=== PATIENT | female | born 1940 | race Caucasian/White ===

== ENCOUNTER 2019-10-04 18:12 | Inpatient (IN) | payer MEDICARE, OTHER ==
[~2019-10-04] VITALS: Ht 170.2 cm; Wt 92.8 kg
[~2019-10-04 18:12] MED LIST: ACET325T21 PO; ALPRAZOLAM; AMLO5TAB10 PO; ASPI-482 PO; DESV50TA PO; DIPH25CA23 PO; DOCU-109 PO; FERR325T14 PO; GUAI100L12 PO; GUAI200T3 PO; HYDR-2868 PO; HYDR-923 PO; HYDR25TA PO; LOPE2TAB56 PO; MECL-75 PO; MELA3TAB4 PO; METO-239 PO; MYLANTA; OXYC1TAB15 PO; PANT40TA5 PO; RISP1TAB43 PO; SIME125T17 PO; [UNRECOGNIZED DRUG - CODE] MC; [UNRECOGNIZED DRUG - OTHER]; [UNRECOGNIZED DRUG - OTHER]; [UNRECOGNIZED DRUG - OTHER]; risperidone IM
--- NOTE | 2019-10-04 18:31 | PHYS DOC ---
Past History Past Medical History: Anemia, Anxiety, Arthritis, Arrhythmia, Bipolar, CAD, Dementia, Depression, Diverticulitis, Gallstones, GERD, Hypertension Past Medical History Parkinson disease, Tremor, Tardive Dyskinesia Past Surgical History: Angioplasty, Appendectomy, Hysterectomy Smoking: Non-smoker Alcohol Use: None Drug Use: None Adult General Chief Complaint Chief Complaint: ... "What ever.. " [facility] HPI Patient is a 79 year old female who presents with above hx and complaints that she only wants to be called "Pat". Pt. sent to ED for pre-medical clearance to [facility]. Pt. a resident of [facility] , since09/14/2019. Pt. has been calling 911, repeatedly. Pt. more confused. Decreased interest in activities at [place]. Difficult to re-direct. Exhibiting poor impulse control. Increase in Somatic complaints, panic episodes, and over all increase in anxiety. Increase delusions. Acute onset of change approximately l week ago. . Patient has history of parties to dyskinesia, Parkinson's, tremors, bipolar schizoaffective disorder, frequent PVCs, hypertension, GERD, chronic dyspnea, COPD/emphysema, and history of pneumonia in 09/14/19. Primary care physician is Dr. Yvette Barriga. Review of Systems Review of Systems Patient has no complaints Constitutional: Denies fever or chills [] Eyes: Denies change in visual acuity, redness, or eye pain [] HENT: Denies nasal congestion or sore throat [] Respiratory: Denies cough or shortness of breath [] Cardiovascular: No additional information not addressed in [facility] [] GI: Denies abdominal pain, nausea, vomiting, bloody stools or diarrhea [] : Denies dysuria or hematuria [] Musculoskeletal: Denies back pain or joint pain [] Integument: Denies rash or skin lesions [] Neurologic: Denies headache, focal weakness or sensory changes [] Endocrine: Denies polyuria or polydipsia [] All other systems were reviewed and found to be within normal limits, except as documented in this note. Family History Family History Not currently available Current Medications Current Medications See nursing for home meds Allergies Allergies Allergies Coded Allergies Type Severity Reaction Last Updated Verified No Known Drug Allergies 08/01/13 No Physical Exam Physical Exam Constitutional: no acute distress, non-toxic appearance. [] HENT: Normocephalic, atraumatic, bilateral external ears normal, oropharynx moist, no oral exudates, nose normal. [] Eyes: PERRLA, EOMI, conjunctiva normal, no discharge. [] Neck: Normal range of motion, no tenderness, supple, no stridor. [] Cardiovascular:Heart rate regular rhythm, no murmur [, PMI to the left] Lungs & Thorax: Bilateral breath sounds equal apexes with basilar crackles on auscultation [] Abdomen: Bowel sounds normal, soft, no tenderness, no masses, no pulsatile masses. [Obese. Old surgery scars Skin: Warm, dry, no erythema, no rash. Poor turgor Back: No tenderness, no CVA tenderness. [] Extremities: No tenderness, no cyanosis, no clubbing, ROM intact, bilateral ankle edema. [] Neurologic: Alert, at times appears confused, moves extremities on request, does have distal sensory, n Psychologic: Affect anxious, at times very flat affect, judgement obviously impaired, mood depressed EKG EKG My interpretation EKG shows a sinus rhythm at 77 bpm. Occasional PVCs. Multifocal[] Radiology/Procedures Radiology/[place] [address] IMAGING REPORT Signed PATIENT: BRIDGET RODRIGUEZ ACCOUNT: [id number] : 1940 LOCATION: ER AGE: 79 SEX: F EXAM STATUS: REG ER ORD. PHYSICIAN: JOEY MEJIA MD REASON: Dyspnea PROCEDURE: PORTABLE CHEST 1V PORTABLE CHEST 1V History: Dyspnea Comparison: Chest radiograph July 28, [address] abdomen pelvis exam July 28, 2013 Findings: Single view of the chest is submitted. There is again large left hiatal hernia. There is atherosclerotic calcification near aortic arch. There is likely degree of atelectasis adjacent to the hernia sac at the mid to inferior left hemithorax, also mild linear right base atelectasis. No pneumothorax is identified. Heart size is similar. Impression: 1. There is again large left hiatal hernia. There is likely degree of atelectasis adjacent to hernia sac on the left, also linear likely atelectasis of the right lung base. Electronically signed by: Andrew Gutierrez MD (10/04/2019 7:32 PM) [id number] DICTATED AND SIGNED BY: ANDREW GUTIERREZ MD DATE: 10/04/191931 CC: JOEY MEJIA MD; YVETTE BARRIGA MD ~ [][place] [address] IMAGING REPORT Signed PATIENT: BRIDGET RODRIGUEZ ACCOUNT: [id number] : 1940 LOCATION: ER AGE: 79 SEX: F EXAM STATUS: REG ER ORD. PHYSICIAN: JOEY MEJIA MD REASON: mental status change-increased confusion PROCEDURE: CT HEAD WO CONTRAST CT HEAD WO CONTRAST History: Mental status change, increasing confusion Comparison: April 08, 2013 Technique: Noncontrast CT imaging was performed of the head. Exposure: One or more of the following individualized dose reduction techniques were utilized for this examination: 1. Automated exposure control 2. Adjustment of the mA and/or kV according to patient size 3. Use of iterative reconstruction technique. Findings: Patient's head is somewhat tilted in the gantry during exam. No acute extra-axial or parenchymal hemorrhage is identified. There is no significant intra-axial mass effect or midline shift. There is again small likely arachnoid cyst of the posterior right parasagittal posterior fossa up to 1.9 cm AP by 1.6 cm transverse. The garcia-white differentiation of the major vascular territories is preserved. Ventricular size is proportionate to the sulcal spaces. There is mild generalized supratentorial involutional change. The mastoid air cells and the visualized paranasal sinuses are overall aerated, possible mild right maxillary sinus mucosal thickening not fully included. No acute calvarial abnormality is identified. Impression: 1. No acute intracranial abnormality is identified. There is mild generalized supratentorial involutional change. Electronically signed by: Andrew Gutierrez MD (10/04/2019 8:11 PM) [id number] DICTATED AND SIGNED BY: ANDREW GUTIERREZ MD DATE: 10/04/192010 CC: JOEY MEJIA MD; YVETTE BARRIGA MD ~ Course & Med Decision Making Course & Med Decision Making Pertinent Labs and Imaging studies reviewed. (See chart for details) Patient admitted to [facility] Dr. Corona, Consults to Dr. Zapata for health issues. Impression; 1. Mental status change 2. Hx. Insomnia 3. Behavior issues increased by difficult to redirect 4. Anxiety disorder with panic attacks 5. History bipolar with schizoaffective and psychotic features 6. History of hypertension 7. History of dysrhythmia PVC 8. History of Parkinson with tremors 9. History of tardive to dyskinesia 10. Sub-therapeutic valproic acid level- 21 11. Malnutrition albumin 3.1 [] Dragon Disclaimer Dragon Disclaimer This electronic medical record was generated, in whole or in part, using a voice recognition dictation system. Departure Departure: Disposition: 01 HOME/RESIDENCE PRIOR TO ADM Condition: STABLE Referrals: YVETTE BARRIGA MD (PCP) Raquel Disclaimer This chart was dictated in whole or in part using Voice Recognition software in a busy, high-work load, and often noisy Emergency Department environment. It may contain unintended and wholly unrecognized errors or omissions. JOEY MEJIA MD Oct 04, 2019 18:31
[2019-10-04 19:13] LABS: BASO % 0 % (0-3); EOS # 0.2 x10^3/uL (0.0-0.7); EOS % 3 % (0-3); HEMATOCRIT 43.8 % (36.0-47.0); HEMOGLOBIN 14.6 g/dL (12.0-15.5); LYMPH # 0.9 x10^3/uL (1.0-4.8); LYMPH % 15 % (24-48); MEAN CORPUSCULAR HEMOGLOBIN 32 pg (25-35); MEAN CORPUSCULAR HGB CONC 33 g/dL (31-37); MEAN CORPUSCULAR VOLUME 94 fL (79-100); MONO # 0.6 x10^3/uL (0.0-1.1); MONO % 11 % (0-9); NEUT % 70 % (31-73); PLATELET COUNT 230 x10^3/uL (140-400); RED BLOOD COUNT 4.64 x10^6/uL (3.50-5.40); RED CELL DISTRIBUTION WIDTH 15.2 % (11.5-14.5); WHITE BLOOD COUNT 5.7 x10^3/uL (4.0-11.0)
[2019-10-04 19:21] LABS: ANION GAP 7 (6-14); BLOOD UREA NITROGEN 7 mg/dL (7-20); CALCIUM 8.6 mg/dL (8.5-10.1); CARBON DIOXIDE 30 mmol/L (21-32); CHLORIDE 105 mmol/L (98-107); CREATININE 0.8 mg/dL (0.6-1.0); GFR 69.6; GLUCOSE 116 mg/dL (70-99); POTASSIUM 4.5 mmol/L (3.5-5.1); SODIUM 142 mmol/L (136-145)
[2019-10-04 19:34] LABS: ALBUMIN 3.1 g/dL (3.4-5.0); ALK PHOS 88 U/L (46-116); ALT (SGPT) 34 U/L (14-59); AST (SGOT) 28 U/L (15-37); DIRECT BILIRUBIN 0.1 mg/dL (0.0-0.2); LIPASE 203 U/L (73-393); MAGNESIUM 2.2 mg/dL (1.8-2.4); TOTAL BILIRUBIN 0.3 mg/dL (0.2-1.0); TOTAL PROTEIN 5.9 g/dL (6.4-8.2)
--- NOTE | 2019-10-04 19:35 | RAD ---
PORTABLE CHEST 1V History: Dyspnea Comparison: Chest radiograph July 28, [address] abdomen pelvis exam July 28, 2013 Findings: Single view of the chest is submitted. There is again large left hiatal hernia. There is atherosclerotic calcification near aortic arch. There is likely degree of atelectasis adjacent to the hernia sac at the mid to inferior left hemithorax, also mild linear right base atelectasis. No pneumothorax is identified. Heart size is similar. Impression: 1. There is again large left hiatal hernia. There is likely degree of atelectasis adjacent to hernia sac on the left, also linear likely atelectasis of the right lung base. Electronically signed by: Ottoniel Gonzalez MD (10/04/2019 7:32 PM) [id number]
[2019-10-04 19:40] LABS: VAL ACID 21 mcg/mL (50-100)
[2019-10-04 19:48] LABS: INFLUENZA A PATIENT NEGATIVE (NEGATIVE); INFLUENZA B PATIENT NEGATIVE (NEGATIVE)
--- NOTE | 2019-10-04 20:14 | RAD ---
CT HEAD WO CONTRAST History: Mental status change, increasing confusion Comparison: April 08, 2013 Technique: Noncontrast CT imaging was performed of the head. Exposure: One or more of the following individualized dose reduction techniques were utilized for this examination: 1. Automated exposure control 2. Adjustment of the mA and/or kV according to patient size 3. Use of iterative reconstruction technique. Findings: Patient's head is somewhat tilted in the gantry during exam. No acute extra-axial or parenchymal hemorrhage is identified. There is no significant intra-axial mass effect or midline shift. There is again small likely arachnoid cyst of the posterior right parasagittal posterior fossa up to 1.9 cm AP by 1.6 cm transverse. The garcia-white differentiation of the major vascular territories is preserved. Ventricular size is proportionate to the sulcal spaces. There is mild generalized supratentorial involutional change. The mastoid air cells and the visualized paranasal sinuses are overall aerated, possible mild right maxillary sinus mucosal thickening not fully included. No acute calvarial abnormality is identified. Impression: 1. No acute intracranial abnormality is identified. There is mild generalized supratentorial involutional change. Electronically signed by: Ottoniel Gonzalez MD (10/04/2019 8:11 PM) [id number]
[2019-10-04] MEDS ORDERED: AMLO10TA8 PO (20:16)
[2019-10-04 20:19] LABS: SEDIMENTATION RATE 22 (0-25)
[2019-10-04] MEDS ORDERED: IPRA3AMP29 NEB ×2 (20:30)
[2019-10-04] MEDS ORDERED: LACT1CAP19 PO (20:30)
[2019-10-04] MEDS ORDERED: BUSP10TA PO (20:30)
[2019-10-04] MEDS ORDERED: BACL10TA PO (20:30)
[2019-10-04] MEDS ORDERED: PROP15DR40 EACHEYE (20:30)
[2019-10-04] MEDS ORDERED: CARB1TAB22 PO (20:30)
[2019-10-04] MEDS ORDERED: POTA20TA4 PO (20:30)
[2019-10-04] MEDS ORDERED: LORA0.5T96 PO (20:30)
[2019-10-04] MEDS ORDERED: FURO40TA4 PO (20:30)
[2019-10-04] MEDS ORDERED: ARIP2TAB35 PO (20:30)
[2019-10-04] MEDS ORDERED: MAGN30OR PO (20:30)
[2019-10-04] MEDS ORDERED: FLUT9.9S NS (20:30)
[2019-10-04] MEDS ORDERED: ALBU2.5V8 INH (20:30)
[2019-10-04] MEDS ORDERED: DIVA-51 PO (20:30)
[2019-10-04] MEDS ORDERED: TRIA15CR50 TP (20:30)
[2019-10-04] MEDS ORDERED: ACET325T21 PO (20:30)
[2019-10-04 20:50] LABS: BACTERIA,URINE 0 /HPF (0-FEW); BILIRUBIN,URINE NEG (NEG); CLARITY,URINE CLEAR; COLOR,URINE YELLOW; GLUCOSE,URINE NEG (NEG); NITRITE,URINE NEG (NEG); RBC,URINE 0 /HPF (0-2); SQUAMOUS EPITHELIAL CELL,UR OCC /LPF; UROBILINOGEN,URINE 0.2 mg/dL (0.2 mg/dL); WBC,URINE 0 /HPF (0-4)
[2019-10-04 21:06] LABS: AMPHETAMINE/METHAMPHETAMINE NEG (NEG); BARBITURATES NEG (NEG); BENZODIAZEPINES NEG (NEG); CANNABINOIDS NEG (NEG); COCAINE NEG (NEG); METHADONE NEG (NEG); OPIATES NEG (NEG); PHENCYCLIDINE NEG (NEG)
[2019-10-04] MEDS ORDERED: MAGNESIUM HYDROXIDE 2,400 MG/30 ML ORAL.SUSP. PO PRN (23:30)
[2019-10-04] MEDS ORDERED: METHYL SALICYLATE/MENTHOL TOPICAL OINTMENT 57GM TUBE. TP PRN (23:30)
[2019-10-04] MEDS ORDERED: DULO30CA2 PO (23:57)
[2019-10-04] MEDS ORDERED: DULO20CA50 PO (23:57)
[2019-10-05] MEDS ORDERED: ALBUTEROL SULFATE 2.5 MG/3 ML NEBU. INH PRN
[2019-10-05] MEDS ORDERED: ACETAMINOPHEN 325 MG TABLET PO PRN
[2019-10-05] MEDS ORDERED: TRIAMCINOLONE ACETONIDE 0.5% TOPICAL CREAM 15GM TUBE. TP PRN
[2019-10-05] MEDS ORDERED: IPRATRPIUM/ALBUTEROL 0.5/2.5MG 3 ML NEBU. NEB PRN
[2019-10-05] MEDS ORDERED: MAG HYDROX/AL HYDROX/SIMETH 30 ML ORAL.SUSP PO PRN (00:15)
[2019-10-05 03:37] VITALS: BP 138/82
[2019-10-05] MEDS ORDERED: IPRATRPIUM/ALBUTEROL 0.5/2.5MG 3 ML NEBU. ONE (04:58)
[2019-10-05] MEDS: IPRATRPIUM/ALBUTEROL 0.5/2.5MG 3 ML NEBU. NEB SCH ×4 (05:35→20:00)
[2019-10-05 06:02] VITALS: BP 141/77
[2019-10-05 07:01] LABS: BASO % 0 % (0-3); EOS # 0.2 x10^3/uL (0.0-0.7); EOS % 3 % (0-3); HEMOGLOBIN 13.9 g/dL (12.0-15.5); LYMPH # 1.2 x10^3/uL (1.0-4.8); LYMPH % 21 % (24-48); MEAN CORPUSCULAR HEMOGLOBIN 31 pg (25-35); MEAN CORPUSCULAR HGB CONC 33 g/dL (31-37); MEAN CORPUSCULAR VOLUME 95 fL (79-100); MONO # 0.6 x10^3/uL (0.0-1.1); MONO % 11 % (0-9); NEUT # 3.7 x10^3uL (1.8-7.7); NEUT % 65 % (31-73); PLATELET COUNT 221 x10^3/uL (140-400); RED BLOOD COUNT 4.44 x10^6/uL (3.50-5.40); RED CELL DISTRIBUTION WIDTH 15.3 % (11.5-14.5); WHITE BLOOD COUNT 5.7 x10^3/uL (4.0-11.0)
[2019-10-05 07:07] LABS: CALCIUM 8.6 mg/dL (8.5-10.1); CREATININE 0.7 mg/dL (0.6-1.0); GFR 81.1; POTASSIUM 3.9 mmol/L (3.5-5.1)
[2019-10-05] MEDS ORDERED: IPRATRPIUM/ALBUTEROL 0.5/2.5MG 3 ML NEBU. NEB SCH (08:00)
[2019-10-05] MEDS: METOPROLOL SUCC 24HR ER 25 MG TAB.ER.24H. PO SCH (08:51)
[2019-10-05] MEDS: BACLOFEN 10 MG TABLET PO SCH ×2 (08:51→20:11)
[2019-10-05] MEDS: busPIRone 10 MG TABLET. PO SCH ×2 (08:52→20:10)
[2019-10-05] MEDS: FUROSEMIDE 40 MG TABLET PO SCH (08:52)
[2019-10-05] MEDS: hydrALAZINE 25 MG TABLET PO SCH ×2 (08:52→20:11)
[2019-10-05] MEDS: amLODIPine BESYLATE 10 MG TABLET PO SCH (08:52)
[2019-10-05] MEDS: DIVALPROEX SODIUM 250 MG TABLET.DR. PO SCH ×2 (08:52→20:10)
[2019-10-05] MEDS: CARBIDOPA/LEVODOPA 25/100MG TABLET PO SCH ×3 (08:52→20:10)
[2019-10-05] MEDS: POLYVINYL ALCOHOL 1.4% OPHTH SOLUTION 15ML BOTTLE. OU SCH ×2 (09:00→20:11)
[2019-10-05] MEDS: POTASSIUM CHLORIDE 20 MEQ TABLET.ER. PO SCH ×2 (09:00→20:10)
[2019-10-05] MEDS: LACTOBACILLUS RHAMNOSUS GG 1 CAPSULE. PO SCH ×2 (09:00→20:10)
[2019-10-05] MEDS: FLUTICASONE 50MCG/NASAL SPRAY 16GM BOTTLE. NS SCH (09:00)
[2019-10-05 15:54] VITALS: BP 128/78
[2019-10-05 18:06] LABS: THYROXINE 9.3 ug/dL (4.5-12.0)
[2019-10-05] MEDS: LORazepam 0.5 MG TABLET PO SCH (20:11)
--- NOTE | 2019-10-05 21:49 | PDOC ---
Exam Note: Biju Note: Please also refer to the separate dictated note~for this date of service dictated separately. Discussed the patient with Nursing staff reviewed the chart.~Reviewed interim history and current functioning. Reviewed vital signs,~Labs/ Radiology~and current medications noted below. Continue current treatment with the changes noted in the dictated addendum note Assessment: Vital Signs/I&O: Vital Signs Date Time Temp Pulse Resp B/P (MAP) Pulse Ox O2 Delivery O2 Flow Rate FiO2 10/05/19 20:11 84 128/78 10/05/19 15:54 98.0 18 92 10/05/19 06:18 Nasal Cannula 2.0 Labs: Laboratory Tests Test 10/05/19 06:47 White Blood Count 5.7 x10^3/uL (4.0-11.0) Red Blood Count 4.44 x10^6/uL (3.50-5.40) Hemoglobin 13.9 g/dL (12.0-15.5) Hematocrit 42.0 % (36.0-47.0) Mean Corpuscular Volume 95 fL (79-100) Mean Corpuscular Hemoglobin 31 pg (25-35) Mean Corpuscular Hemoglobin Concent 33 g/dL (31-37) Red Cell Distribution Width 15.3 % (11.5-14.5) H Platelet Count 221 x10^3/uL (140-400) Neutrophils (%) (Auto) 65 % (31-73) Lymphocytes (%) (Auto) 21 % (24-48) L Monocytes (%) (Auto) 11 % (0-9) H Eosinophils (%) (Auto) 3 % (0-3) Basophils (%) (Auto) 0 % (0-3) Neutrophils # (Auto) 3.7 x10^3uL (1.8-7.7) Lymphocytes # (Auto) 1.2 x10^3/uL (1.0-4.8) Monocytes # (Auto) 0.6 x10^3/uL (0.0-1.1) Eosinophils # (Auto) 0.2 x10^3/uL (0.0-0.7) Basophils # (Auto) 0.0 x10^3/uL (0.0-0.2) Sodium Level 141 mmol/L (136-145) Potassium Level 3.9 mmol/L (3.5-5.1) Chloride Level 106 mmol/L (98-107) Carbon Dioxide Level 29 mmol/L (21-32) Anion Gap 6 (6-14) Blood Urea Nitrogen 7 mg/dL (7-20) Creatinine 0.7 mg/dL (0.6-1.0) Estimated GFR (Cockcroft-Gault) 81.1 Glucose Level 96 mg/dL (70-99) Calcium Level 8.6 mg/dL (8.5-10.1) Thyroxine (T4) 9.3 ug/dL (4.5-12.0) Total Triiodothyronine (TT3) 103 ng/dL (71-180) Current Medications: Meds: Current Medications Medications (Trade) Dose Ordered Sig/Mode Route PRN Reason Start Time Stop Time Status Last Admin Dose Admin Amlodipine Besylate (Norvasc) 10 mg DAILY PO 10/05/19 09:00 10/05/19 08:52 Baclofen (Lioresal) 10 mg BID PO 10/05/19 09:00 10/05/19 20:11 Carbidopa/Levodopa (Sinemet 25/100) 1 tab TID PO 10/05/19 09:00 10/05/19 20:10 Furosemide (Lasix) 40 mg DAILY PO 10/05/19 09:00 10/05/19 08:52 Hydralazine HCl (Apresoline) 25 mg BID PO 10/05/19 09:00 10/05/19 20:11 Albuterol/ Ipratropium (Duoneb) 3 ml RTQID NEB 10/05/19 08:00 10/05/19 16:49 Lactobacillus Rhamnosus (Culturelle) 1 cap BID PO 10/05/19 09:00 10/05/19 20:10 Metoprolol Succinate (Toprol Xl) 25 mg DAILY PO 10/05/19 09:00 10/05/19 08:51 Potassium Chloride (Klor-Con) 20 meq BID PO 10/05/19 09:00 10/05/19 20:10 Artificial Tears (Artificial Tears) 1 drop BID OU 10/05/19 09:00 10/05/19 20:11 Buspirone HCl (Buspar) 10 mg BID PO 10/05/19 09:00 10/05/19 20:10 Divalproex Sodium (Depakote) 250 mg BID PO 10/05/19 09:00 10/05/19 20:10 Lorazepam (Ativan) 0.5 mg HS PO 10/05/19 21:00 10/05/19 20:11 I have reviewed the current psychotropics carefully including drug interactions. Risk benefit ratio favors no change other than as noted in my dictated progress note. Diagnosis: Problems: (1) Dementia with behavioral disturbance ASHLY FORMAN MD Oct 05, 2019 21:48
[2019-10-06 00:07] LABS: HEMOGLOBIN A1C 5.2 % (4.8-5.6)
--- NOTE | 2019-10-06 01:37 | CONS ---
DATE OF CONSULTATION: 10/05/2019 REASON FOR CONSULTATION: Medical management. HISTORY OF PRESENT ILLNESS: The patient is a 79-year-old female patient, resident at [facility], who was admitted on account of calling 911. She has decreased interest in activities, making repetitive statements, anxious with change in mental status, multiple somatic complaints, panic attack, calling police to tell them that she does not feel well, all this in a background of schizoaffective disorder, bipolar type, with psychotic features, anxiety disorder, impulse control disorder. Medically, she has multiple medical problems including tardive dyskinesia, possible drug-induced Parkinson's disease, tremors. She does have hypertension, gastroesophageal reflux disease, has coronary artery disease and she underwent coronary angiography and stent deployment. ALLERGIES: She is allergic to DILTIAZEM and RISPERIDONE. MEDICATIONS: She is currently on following medications: She is on ipratropium bromide, albuterol sulfate 3 mL by nebulizer every 6 hours, ipratropium bromide. She is on albuterol sulfate for ProAir 1 puff every 4 hours, baclofen 10 mg twice a day, hydralazine 25 mg every 12 hours, metoprolol succinate 25 mg once a day, amlodipine besylate 10 mg daily, acetaminophen 650 mg every 6 hours, divalproex sodium 250 mg twice a day, duloxetine 20 mg twice a day. She is on Cymbalta 30 mg twice a day, aripiprazole 2.5 mg daily, lorazepam 0.5 mg at bedtime, buspirone 10 mg twice a day, carbidopa/levodopa 25/100 three times a day, potassium chloride 20 mEq twice a day, furosemide 40 mg daily, Flonase 1 spray to each nostril daily. She is on Systane 1 drop to both eyes twice a day, magnesium hydroxide for 15 mL every 8 hours as needed, lactobacillus rhamnosus for Culturelle 1 capsule twice a day. She is on triamcinolone acetonide cream applied topically twice a day. FAMILY HISTORY: Noncontributory. SOCIAL HISTORY: She has been a resident at [facility] for a long time. She does not smoke, drink alcohol or use any recreational drugs. REVIEW OF SYSTEMS: As per history of present illness. PHYSICAL EXAMINATION: GENERAL: When I saw her today, she was sitting comfortably in her chair, in no apparent respiratory distress. There was no pallor, jaundice, cyanosis or thyromegaly. No jugular venous distension. No lower limb edema. VITAL SIGNS: Her heart rate was 84, blood pressure was 128/78, temperature was 98, respiratory rate was 18, and oxygen saturation was 92% on room air. HEAD, EYES, EARS, NOSE AND THROAT: Showed normocephalic, atraumatic. NECK: Supple. HEART: Showed normal first and second heart sounds. No gallop or murmur. CHEST: Clear to auscultation. No crepitation or rhonchi. ABDOMEN: Distended, soft, nontender. NEUROLOGIC: She is awake, alert, responding appropriately. All cranial nerves intact. EXTREMITIES: She moves extremities without difficulty. She is able to ambulate without assistance or assistive devices. LABORATORY DATA: Showed that her white cell count was 5700, hemoglobin 14, hematocrit 42, MCV 95, and platelet count 221,000. Her serum sodium was 141, potassium 3.9, chloride 106, bicarbonate 29, anion gap of 6, BUN 7, creatinine was 0.7, estimated GFR was 81 mL per minute. Her glucose was 96, calcium was 8.6. Her serum iron, TIBC and iron saturation are consistent with anemia of chronic disease. Her serum triglycerides were 134, total cholesterol 217, LDL was 121, VLDL was 26, HDL cholesterol was 70 and the ratio was 3. TSH was 2.088. Her prothrombin time, INR and aPTT were normal. Urinalysis was essentially unremarkable. Toxic screen was essentially negative and her influenza A and B were negative. She did have a chest x-ray, which basically showed that there is large hiatal hernia. There is likely a degree of atelectasis adjacent to the hernia sac on the left, also linear likely atelectasis in the right lung base. Her CT scan of the head showed no acute intracranial abnormality identified. There are mild generalized supratentorial involutional changes. ASSESSMENT AND PLAN: In summary, this is a 79-year-old female patient, a resident at [facility], who was [facility] on account of calling 911, decreased interest in activity, making repetitive statements, anxious, has numerous somatic complaints, panic attacks, calling police to tell them that she does not feel well, all this in a background of schizoaffective disorder, bipolar type, with psychotic features, anxiety disorder, impulse control disorder. 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 She probably has been seen in every Emergency Room in this town numerous times at [facility], [place] [facility] as well as [facility] in particular. She does have coronary artery disease and she had a PCI and stent deployment at [facility] before. She seemed to have tremors that are most likely parkinsonian and probably drug-induced. She has hypertension, gastroesophageal reflux disease for which I believe has done before upper GI endoscopy. I would consult Dr. Otero to evaluate her tremors and possible tardive dyskinesia and for Parkinson's disease, otherwise medically she seemed to be fairly stable. Her vital signs are within acceptable range. All her lab works are within acceptable range for a patient at her age. I will follow all her other labs that are still pending and make any necessary recommendation. Thank you, Dr. Corona for allowing me to participate in the care of this patient. MARIA ISABEL CUEVAS MD DR: LAURENT/sandoval JOB#: [id number] / [id number]
[2019-10-06] MEDS: IPRATRPIUM/ALBUTEROL 0.5/2.5MG 3 ML NEBU. NEB SCH ×4 (05:30→20:59)
[2019-10-06 06:20] VITALS: BP 150/86
[2019-10-06] MEDS: hydrALAZINE 25 MG TABLET PO SCH ×2 (08:27→20:24)
[2019-10-06] MEDS: DIVALPROEX SODIUM 250 MG TABLET.DR. PO SCH ×2 (08:27→20:24)
[2019-10-06] MEDS: METOPROLOL SUCC 24HR ER 25 MG TAB.ER.24H. PO SCH (08:28)
[2019-10-06] MEDS: POTASSIUM CHLORIDE 20 MEQ TABLET.ER. PO SCH ×2 (08:28→20:24)
[2019-10-06] MEDS: FUROSEMIDE 40 MG TABLET PO SCH (08:28)
[2019-10-06] MEDS: BACLOFEN 10 MG TABLET PO SCH ×2 (08:29→20:24)
[2019-10-06] MEDS: amLODIPine BESYLATE 10 MG TABLET PO SCH (08:29)
[2019-10-06] MEDS: LACTOBACILLUS RHAMNOSUS GG 1 CAPSULE. PO SCH ×2 (08:29→20:24)
[2019-10-06] MEDS: CARBIDOPA/LEVODOPA 25/100MG TABLET PO SCH ×3 (08:29→20:25)
[2019-10-06] MEDS: busPIRone 10 MG TABLET. PO SCH ×2 (08:29→20:24)
--- NOTE | 2019-10-06 08:51 | PDOC2 ---
CARDIAC CONSULT DATE OF CONSULT Date Of Consult DATE: 10/06/19 TIME: 08:44 REASON FOR CONSULT Reason for Consult Possible AFIB REFERRING PHYSICIAN Referring Physician Dr. Corona SOURCE Source: Chart review, Patient HPI History of Present Illness This is a 79 yo female admitted to the behavioral unit for increase confusion, anxiety, and panic attacks. Has been repeatedly calling 911 at nursing facility. Patient was sent to [facility] recently with concern about possible irregular heart rhythm. EKG at that time showed NSR. Patient with essential tremor. Patient denies any chest pain, palpitations, dizziness, diaphoresis, or nausea/vomiting. States she wears oxygen at night. Heart tones presently regular. No EKG conducted this admission. PAST MEDICAL HISTORY Past Medical History tardive dyskinesia Cardiovascular: CAD, HTN, hyperipidemia GI: GERD Psych: Anxiety, Bipolar, Depression, Schizophrenia PAST SURGICAL HISTORY Past Surgical History Tonsillectomy, Hysterectomy, Other (PCI/stent; EGD) FAMILY HISTORY Family History: Hypertension SOCIAL HISTORY Smoke: No ALCOHOL: none Drugs: None Lives: [facility] CURRENT MEDICATIONS Current Medications Current Medications Albuterol/ Ipratropium (Duoneb) 3 ml RTQID NEB ; Start 10/05/19 at 08:00; Stop 10/04/19 at 23:59; Status DC Multi-Ingredient Ointment (Analgesic [place]) 1 maria teresa PRN QID PRN TP MUSCLE PAIN; Start 10/04/19 at 23:30 Magnesium Hydroxide (Milk Of Magnesia) 2,400 mg PRN QHS PRN PO CONSTIPATION; Start 10/04/19 at 23:30 Acetaminophen (Tylenol) 650 mg PRN Q6HRS PRN PO PAIN / TEMP; Start 10/05/19 at 00:00 Albuterol Sulfate (Ventolin) 2.5 mg PRN Q4HRS PRN INH SHORTNESS OF BREATH; Start 10/05/19 at 00:00 Amlodipine Besylate (Norvasc) 10 mg DAILY PO Last administered on 10/06/19at 08:29; Start 10/05/19 at 09:00 Baclofen (Lioresal) 10 mg BID PO Last administered on 10/06/19at 08:29; Start 10/05/19 at 09:00 Carbidopa/Levodopa (Sinemet 25/100) 1 tab TID PO Last administered on 10/06/19at 08:29; Start 10/05/19 at 09:00 Furosemide (Lasix) 40 mg DAILY PO Last administered on 10/06/19 08:28; Start 10/05/19 at 09:00 Hydralazine HCl (Apresoline) 25 mg BID PO Last administered on 10/06/19 08:27; Start 10/05/19 at 09:00 Albuterol/ Ipratropium (Duoneb) 3 ml PRN Q6HRS PRN NEB SHORTNESS OF BREATH; Start 10/05/19 at 00:00; Status UNV Albuterol/ Ipratropium (Duoneb) 3 ml RTQID NEB Last administered on 10/05/19 16:49; Start 10/05/19 at 08:00 Lactobacillus Rhamnosus (Culturelle) 1 cap BID PO Last administered on 10/06/19 08:29; Start 10/05/19 at 09:00 Metoprolol Succinate (Toprol Xl) 25 mg DAILY PO Last administered on 10/06/19 08:28; Start 10/05/19 at 09:00 Potassium Chloride (Klor-Con) 20 meq BID PO Last administered on 10/06/19 08:28; Start 10/05/19 at 09:00 Triamcinolone Acetonide (Kenalog 0.5%) 1 maria teresa PRN Q12HR PRN TP RASH; Start 09/17 05/06 at 00:00 Fluticasone Propionate (Flonase) 2 spray DAILY NS ; Start 10/05/19 at 09:00 Al Hydroxide/Mg Hydroxide (Mylanta Plus Xs) 15 ml PRN Q8HRS PRN PO DYSPEPSIA; Start 10/05/19 at 00:15 Artificial Tears (Artificial Tears) 1 drop BID OU Last administered on 10/05/19 20:11; Start 10/05/19 at 09:00 Buspirone HCl (Buspar) 10 mg BID PO Last administered on 10/06/19 08:29; St art 10/05/19 at 09:00 Divalproex Sodium (Depakote) 250 mg BID PO Last administered on 10/06/19 08:27; Start 10/05/19 at 09:00 Lorazepam (Ativan) 0.5 mg HS PO Last administered on 2/19/20at 20:11; Start 10/05/19 at 21:00 Albuterol/ Ipratropium (Duoneb) 3 ml STK-MED ONCE .ROUTE ; Start 10/05/19 at 04:58; Stop 10/05/19 at 04:58; Status DC Active Scripts Active Reported Cymbalta (Duloxetine Hcl) 30 Mg Capsule. 30 Mg PO BID Cymbalta (Duloxetine Hcl) 20 Mg Capsule.dr 20 Mg PO BID 7 Days Acetaminophen 325 Mg Tablet 650 Mg PO PRN Q6HRS PRN Triamcinolone Acetonide 15 Gm Cream..g. 1 Maria Teresa TP PRN Q12HR Systane 0.3-0.4% Eye Drops (Propylene Glycol/Peg 400) 15 Ml Drops 1 Drop EACHEYE BID Klor-Con M20 (Potassium Chloride) 20 Meq Tab.er.prt 20 Meq PO BID Mag-Al Liquid (Magnesium Hydroxide/Al Hydrox) 30 Ml Oral.susp 15 Ml PO PRN Q8HRS PRN Furosemide 40 Mg Tablet 40 Mg PO DAILY Duoneb 0.5-3(2.5) Mg/3 Ml (Albuterol/Ipratropium) 3 Ml Ampul.neb 3 Ml NEB QID Duoneb 0.5-3(2.5) Mg/3 Ml (Albuterol/Ipratropium) 3 Ml Ampul.neb 3 Ml NEB PRN Q6HRS PRN Flonase Allergy Relief (Fluticasone Propionate) 9.9 Ml [place].susp 1 Sprays NS DAILY Divalproex Sodium 250 Mg Tablet.dr 250 Mg PO BID Carbidopa-Levodopa 25-100 Tab (Carbidopa/Levodopa) 1 Each Tablet 1 Tab PO TID 30 Days Buspirone Hcl 10 Mg Tablet 10 Mg PO BID Baclofen 10 Mg Tablet 10 Mg PO BID Ativan (Lorazepam) 0.5 Mg Tablet 0.5 Mg PO HS Proair Hfa Inhaler (Albuterol Sulfate) 8.5 Gm Hfa.aer.ad 1 Puff INH PRN Q4HRS PRN Culturelle (Lactobacillus Rhamnosus Gg) 1 Each Cap.sprink 1 Cap PO BID 30 Days Abilify (Aripiprazole) 2 Mg Tablet 2.5 Mg PO DAILY Amlodipine Besylate 10 Mg Tablet 10 Mg PO DAILY Metoprolol Succinate ( Xl ) (Metoprolol Succinate) 25 Mg Tab.er.24h 25 Mg PO DAILY Hydralazine Hcl 25 Mg Tablet 25 Mg PO Q12HRS ALLERGIES Allergies: Coded Allergies: diltiazem (Verified Allergy, Intermediate, 10/04/19) risperidone (Verified Allergy, Intermediate, 10/04/19) ROS Review of Systems 14 point ROS conducted with pertinent positives noted above in HPI PHYSICAL EXAM General: Alert, Oriented X3, Cooperative, No acute distress HEENT: Atraumatic, Mucous membr. moist/pink Lungs: Clear to auscultation, Other (diminished bases) Heart: Regular rate, No murmurs Abdomen: Soft, No tenderness Extremities: Other (trace bilateral LE edema ) Skin: No breakdown Neuro: Normal speech, Sensation intact Psych/Mental Status: Other (anxious ) MUSCULOSKELETAL: Osteoarthritic changes both hands VITALS Vital Signs Vital Signs Date Time Temp Pulse Resp B/P (MAP) Pulse Ox O2 Delivery O2 Flow Rate FiO2 10/06/19 08:29 84 150/86 10/06/19 06:20 98.0 18 95 10/05/19 06:18 Nasal Cannula 2.0 LABS LABS Laboratory Tests Test 10/04/19 18:50 10/04/19 18:53 10/04/19 18:55 10/04/19 19:36 White Blood Count 5.7 x10^3/uL (4.0-11.0) Red Blood Count 4.64 x10^6/uL (3.50-5.40) Hemoglobin 14.6 g/dL (12.0-15.5) Hematocrit 43.8 % (36.0-47.0) Mean Corpuscular Volume 94 fL (79-100) Mean Corpuscular Hemoglobin 32 pg (25-35) Mean Corpuscular Hemoglobin Concent 33 g/dL (31-37) Red Cell Distribution Width 15.2 % (11.5-14.5) Platelet Count 230 x10^3/uL (140-400) Neutrophils (%) (Auto) 70 % (31-73) Lymphocytes (%) (Auto) 15 % (24-48) Monocytes (%) (Auto) 11 % (0-9) Eosinophils (%) (Auto) 3 % (0-3) Basophils (%) (Auto) 0 % (0-3) Neutrophils # (Auto) 4.0 x10^3uL (1.8-7.7) Lymphocytes # (Auto) 0.9 x10^3/uL (1.0-4.8) Monocytes # (Auto) 0.6 x10^3/uL (0.0-1.1) Eosinophils # (Auto) 0.2 x10^3/uL (0.0-0.7) Basophils # (Auto) 0.0 x10^3/uL (0.0-0.2) Erythrocyte Sedimentation Rate 22 (0-25) Prothrombin Time 9.3 SEC (9.4-11.4) Prothromb Time International Ratio 0.9 (0.9-1.1) Activated Partial Thromboplast Time 25 SEC (23-33) Sodium Level 142 mmol/L (136-145) Potassium Level 4.5 mmol/L (3.5-5.1) Chloride Level 105 mmol/L (98-107) Carbon Dioxide Level 30 mmol/L (21-32) Anion Gap 7 (6-14) Blood Urea Nitrogen 7 mg/dL (7-20) Creatinine 0.8 mg/dL (0.6-1.0) Estimated GFR (Cockcroft-Gault) 69.6 Glucose Level 116 mg/dL (70-99) Calcium Level 8.6 mg/dL (8.5-10.1) Magnesium Level 2.2 mg/dL (1.8-2.4) Total Bilirubin 0.3 mg/dL (0.2-1.0) Direct Bilirubin 0.1 mg/dL (0.0-0.2) Aspartate Amino Transf (AST/SGOT) 28 U/L (15-37) Alanine Aminotransferase (ALT/SGPT) 34 U/L (14-59) Alkaline Phosphatase 88 U/L (46-116) Creatine Kinase 108 U/L (26-192) Troponin I Quantitative < 0.017 ng/mL (0-0.055) VM-Mtk-H-Type Natriuretic Peptide 301 pg/mL (0-449) Total Protein 5.9 g/dL (6.4-8.2) Albumin 3.1 g/dL (3.4-5.0) Lipase 203 U/L (73-393) Thyroid Stimulating Hormone (TSH) 2.088 uIU/mL (0.358-3.740) Valproic Acid (Depakene) Level 21 mcg/mL (50-100) Valproic Acid Last Dose Date Unknown Valproic Acid Last Dose Time Unknown Ethyl Alcohol Level < 10 mg/dL (0-10) Hemoglobin A1c 5.2 % (4.8-5.6) Iron Level 67 ug/dL (50-170) Total Iron Binding Capacity 250 ug/dL (250-450) Iron Saturation 27 % (15-34) Triglycerides Level 134 mg/dL (0-150) Cholesterol Level 217 mg/dL (0-200) LDL Cholesterol, Calculated 121 mg/dL (0-100) VLDL Cholesterol, Calculated 26 mg/dL (0-40) Non-HDL Cholesterol Calculated 147 mg/dL (0-129) HDL Cholesterol 70 mg/dL (40-60) Cholesterol/HDL Ratio 3.0 Vitamin B12 Level 557 pg/mL (247-911) 25-Hydroxy Vitamin D Total 13.5 ng/mL (30-100) Treponema pallidum Antibody Nonreactive (Nonreactive) Influenza Type A (Rapid) Negative (NEGATIVE) Influenza Type B (Rapid) Negative (NEGATIVE) Urine Collection Type Unknown Urine Color Yellow Urine Clarity Clear Urine pH 7.0 Urine Specific [place] 1.020 Urine Protein Neg (NEG-TRACE) Urine Glucose (UA) Neg mg/dL (NEG) Urine Ketones (Stick) Neg mg/dL (NEG) Urine Blood Neg (NEG) Urine Nitrite Neg (NEG) Urine Bilirubin Neg (NEG) Urine Urobilinogen Dipstick 0.2 mg/dL (0.2 mg/dL) Urine Leukocyte Esterase Neg (NEG) Urine RBC 0 /HPF (0-2) Urine WBC 0 /HPF (0-4) Urine Squamous Epithelial Cells Occ /LPF Urine Bacteria 0 /HPF (0-FEW) Urine Opiates Screen Neg (NEG) Urine Methadone Screen Neg (NEG) Urine Barbiturates Neg (NEG) Urine Phencyclidine Screen Neg (NEG) Urine Amphetamine/Methamphetamine Neg (NEG) Urine Benzodiazepines Screen Neg (NEG) Urine Cocaine Screen Neg (NEG) Urine Cannabinoids Screen Neg (NEG) Urine Ethyl Alcohol Neg (NEG) Test 10/05/19 06:47 White Blood Count 5.7 x10^3/uL (4.0-11.0) Red Blood Count 4.44 x10^6/uL (3.50-5.40) Hemoglobin 13.9 g/dL (12.0-15.5) Hematocrit 42.0 % (36.0-47.0) Mean Corpuscular Volume 95 fL (79-100) Mean Corpuscular Hemoglobin 31 pg (25-35) Mean Corpuscular Hemoglobin Concent 33 g/dL (31-37) Red Cell Distribution Width 15.3 % (11.5-14.5) Platelet Count 221 x10^3/uL (140-400) Neutrophils (%) (Auto) 65 % (31-73) Lymphocytes (%) (Auto) 21 % (24-48) Monocytes (%) (Auto) 11 % (0-9) Eosinophils (%) (Auto) 3 % (0-3) Basophils (%) (Auto) 0 % (0-3) Neutrophils # (Auto) 3.7 x10^3uL (1.8-7.7) Lymphocytes # (Auto) 1.2 x10^3/uL (1.0-4.8) Monocytes # (Auto) 0.6 x10^3/uL (0.0-1.1) Eosinophils # (Auto) 0.2 x10^3/uL (0.0-0.7) Basophils # (Auto) 0.0 x10^3/uL (0.0-0.2) Sodium Level 141 mmol/L (136-145) Potassium Level 3.9 mmol/L (3.5-5.1) Chloride Level 106 mmol/L (98-107) Carbon Dioxide Level 29 mmol/L (21-32) Anion Gap 6 (6-14) Blood Urea Nitrogen 7 mg/dL (7-20) Creatinine 0.7 mg/dL (0.6-1.0) Estimated GFR (Cockcroft-Gault) 81.1 Glucose Level 96 mg/dL (70-99) Calcium Level 8.6 mg/dL (8.5-10.1) Thyroxine (T4) 9.3 ug/dL (4.5-12.0) Total Triiodothyronine 103 ng/dL (71-180) ECHOCARDIOGRAM Echocardiogram <Conclusion> Left ventricle systolic function is normal. The Ejection Fraction is 55-60%. There is normal LV segmental wall motion. Transmitral Doppler flow pattern is Grade I-abnormal relaxation pattern. Trace mitral regurgitation. Trace tricuspid regurgitation. The PA pressure was estimated at 29 mmHg. There is no evidence of significant pericardial effusion. DATE: 07/06/17 1555 STRESS TEST Stress Test Conclusion 1. No EKG evidence of stressed induced ischemia. 2. Nuclear imaging shows no reversible ischemia. 3. Nuclear imaging shows a fixed defect in the inferior lateral wall suggestive of a prior infarct. 4. Left ventricular systolic function is normal with an ejection fraction of greater than 70%. 5. Moderately low risk Lexiscan nuclear stress test showing no reversible ischemia and good LV systolic function. DATE: 07/07/17 1403 ASSESSMENT/PLAN Assessment/Plan 1. Anxiety, bipolar, schizophrenia 2. Increase agitation, confusion, panic attacks; admitted to [facility] unit 3. CAD s/p PCI/stent 4. Hypertension 5. Hyperlipidemia 6. GERD 7. ? arrhythmia. Recently admitted to [facility] with concerns for irregular heart beat. EKG at that time showed SR. Was SR with occasional PVC's. Heart tones presently regular. HR has been controlled since admission. Not on tele as she is in behavioral unit. 8. Tremor Recommendations EKG Secondary prevention measures; Add ASA, statin No evidence of AFIB thus far No further cardiac workup warranted at this time SETH ROBISON APRN Oct 06, 2019 08:51
[2019-10-06] MEDS: POLYVINYL ALCOHOL 1.4% OPHTH SOLUTION 15ML BOTTLE. OU SCH (09:00)
[2019-10-06] MEDS: FLUTICASONE 50MCG/NASAL SPRAY 16GM BOTTLE. NS SCH (09:00)
[2019-10-06] MEDS: ASPIRIN ENTERIC COATED 81 MG TABLET.DR. PO SCH (11:21)
--- NOTE | 2019-10-06 13:24 | EKG ---
[address] [address] Test Date: 2019-10-06 Test Time: 11:24:18 Pat Name: BRIDGET RODRIGUEZ Department: Room: [address] [place] [address] Gender: F Mirror Machine Feeder: : [id number] Requested By: ASHLY FORMAN Order Number: [id number] Reading MD: Measurements Intervals [place] Rate: 98 P: -1 LA: 152 QRS: 6 QRSD: 78 T: 7 QT: 320 QTc: 410 Interpretive Statements SINUS RHYTHM NORMAL ECG RI6.02 No previous ECG available for comparison
--- NOTE | 2019-10-06 13:57 | HP ---
ADMIT DATE: 10/05/2019 PSYCHIATRIC ADMISSION HISTORY AND EVALUATION This late entry 10/05/2019 covers elements not covered in my initial note. I met with the patient evening of 10/05/2019. IDENTIFYING DATA: The patient is a 79-year-old female referred to us from [facility] by Dr. Yvette Ramachandran, her primary care physician on account of worsening symptoms of depression with decreased interest in activities, making repetitive statements, anxious, appearing more confused with marked somatic preoccupation, panic attacks, calling police to tell them she does not feel good. She appeared psychotic, paranoid, agitated. She was sent to the ER for evaluation. Behaviors persisted, unmanageable at the facility resulting in this referral. CHIEF COMPLAINT: "They found I have atrial fibrillation in the Emergency Room and ____ to stop the Abilify and start Cymbalta. Nothing is going right." HISTORY OF PRESENT ILLNESS: The patient has a history of schizoaffective disorder, bipolar type. She has been an inpatient at our facility in the past, but most recently I followed her at the shelter. She has been intermittently stable. Once in a while she goes to the [place], still has some periods of grandiosity, agitation, psychosis, but recently has been getting much worse. She has been calling the police, totally unmanageable with marked sleep and appetite changes. No active suicidal or homicidal ideation. She has also appeared more confused. PAST PSYCHIATRIC HISTORY: As above. MEDICAL HISTORY: Positive for tardive dyskinesia, possible Parkinson's disease, tremors, heart disease, hypertension, GERD, dyspnea, wheezing. ACCU-CHEKS: Not applicable. CODE STATUS: Full code. ALLERGIES: RISPERDAL, CARDIZEM. DIET: Regular. Takes medications whole, ambulates independently. CURRENT PSYCHOTROPICS: Ativan 0.5 mg at bedtime, BuSpar 10 mg b.i.d., Depakote 250 b.i.d. FAMILY HISTORY: Noncontributory. SOCIAL HISTORY: No history of alcohol, drug abuse, physical, sexual or elder abuse history is noted. Not known to be a perpetrator. REACTION TO HOSPITALIZATION: The patient accepting of it. ASSETS: Supportive family and living at the shelter. MENTAL STATUS EXAMINATION: The patient was seen individually evening of 10/05/2019. She is oriented to herself and situation. Speech has some latency, coherent, often responses monosyllabic. Abstraction fair, computation impaired, language function intact, attention span short. Mood and affect remains somewhat labile, paranoid, suspicious, distractable. LABORATORY DATA: Reviewed. IMPRESSION: Schizoaffective disorder, bipolar type, mixed with psychotic features; anxiety disorder, unspecified; impulse control disorder, unspecified; mild cognitive impairment. Rest as above. PLAN: Admit to Geropsychiatry Unit at [facility]. I will see the patient daily individually from a psychiatric standpoint. Medical followup with Dr. Zapata. We will keep the patient off both the Abilify and Cymbalta, get a Cardiology consult given her recent cardiac changes. Continue current psychotropics, observe baseline, then adjust psychotropics as clinically indicated. Estimated length of stay 10-12 days. DISPOSITION: Plans back to the shelter when stable. MAN Kimberly FORMAN MD DR: CHARLEY/sandoval JOB#: [id number] / [id number]
[2019-10-06 16:17] VITALS: BP 120/69
[2019-10-06] MEDS ORDERED: FLUTICASONE 50MCG/NASAL SPRAY 16GM BOTTLE. NS PRN (18:30)
[2019-10-06] MEDS ORDERED: POLYVINYL ALCOHOL 1.4% OPHTH SOLUTION 15ML BOTTLE. OU PRN (18:30)
[2019-10-06] MEDS: ATORVASTATIN CALCIUM 20 MG TABLET PO SCH (20:24)
[2019-10-06] MEDS: LORazepam 0.5 MG TABLET PO SCH (20:24)
--- NOTE | 2019-10-06 21:28 | PDOC ---
Exam Note: Biju Note: Please also refer to the separate dictated note~for this date of service dictated separately.~Patient seen individually. Discussed the patient with Nursing staff reviewed the chart.~Reviewed interim history and current functioning. Reviewed vital signs,~Labs/ Radiology~and current medications noted below. Continue current treatment with the changes noted in the dictated addendum note Assessment: Vital Signs/I&O: Vital Signs Date Time Temp Pulse Resp B/P (MAP) Pulse Ox O2 Delivery O2 Flow Rate FiO2 10/06/19 20:59 93 Nasal Cannula 2.0 10/06/19 20:24 102 120/69 10/06/19 16:17 97.7 22 I & O 10/05/19 10/05/19 10/06/19 14:59 22:59 06:59 Intake Total 240 ml 360 ml 240 ml Balance 240 ml 360 ml 240 ml Current Medications: Meds: Current Medications Medications (Trade) Dose Ordered Sig/Mode Route PRN Reason Start Time Stop Time Status Last Admin Dose Admin Aspirin (Aspirin Enteric Coated) 81 mg [id number] PO 10/06/19 10:00 10/06/19 11:21 Atorvastatin Calcium (Lipitor) 20 mg QHS PO 10/06/19 21:00 10/06/19 20:24 Divalproex Sodium (Depakote) 500 mg BID PO 10/06/19 21:00 10/06/19 20:24 I have reviewed the current psychotropics carefully including drug interactions. Risk benefit ratio favors no change other than as noted in my dictated progress note. Diagnosis: Problems: (1) Dementia with behavioral disturbance (2) Schizoaffective disorder, mixed type (3) Impulse disorder, unspecified (4) Anxiety disorder, unspecified (5) Mild cognitive impairment ASHLY FORMAN MD Oct 06, 2019 21:28
[2019-10-07] MEDS: IPRATRPIUM/ALBUTEROL 0.5/2.5MG 3 ML NEBU. NEB SCH ×4 (04:47→22:21)
[2019-10-07 06:22] VITALS: BP 100/53
[2019-10-07] MEDS: ASPIRIN ENTERIC COATED 81 MG TABLET.DR. PO SCH (08:00)
--- NOTE | 2019-10-07 08:21 | TX PLAN ---
Interdisciplinary Tx Plan Admission Information Oct 04, 2019 at 22:40 Legal Status (on Admission): Voluntary DPOA/Guardian Name: Nuha Patel DPRUTHANN Contact Other Contact Name: Tushar Mcintosh Other Contact Verified Code Status: Full Code Allergies: Coded Allergies: diltiazem (Verified Allergy, Intermediate, 10/04/19) risperidone (Verified Allergy, Intermediate, 10/04/19) Estimated Length of Stay: 10 Diagnoses Primary Diagnosis: Schizoaffective Disorder Bipolar Type with Psychotic Features; Anxiety Disorder NOS; Impulse Control Disorder NOS Reasons for Admission: Anxiety/Panic, Other Problem in Patient's Words: Per pt., "I kept having attacks." "I have an arrhythmia." Per pt. daughter, "Basically she got really sick." "Her shaking got bad." She was "not able to hold food down well." Pt. daughter talked about pt. having a "hernia" she might need "surgery" on and she is trying to get the doctor at pt. facility to do a "swallow study" and put a "scope" down her "esophagus". She went on to share perhaps her not being able to hold any food down is "causing anxiety." She also shared her "anxiety" goes up when she can't get in contact with her daughter. Problems Active Problems: Per pt. intake, pt. has decreased interest in activities, making repetitive statements, anxious, change in mental status, somatic complaints, panic attacks, calling 911 as she wants to feel better, and calls the police to tell them she doesn't feel good. Inactive Problems: Pt. is compliant with medication with encouragement. Pt Strengths/Limitations Ability for [place]: Poor Cognitive Functioning/Ability: Fair Communication Skills/Ability: Fair Financial Resources: Fair Insight/Judgement: Poor Intellectual Ability: Fair Physical Health: Fair Social Skills: Fair Stability in Family: Fair Verbal Skills: Fair Discharge Criteria Discharge Criteria: Adequate arrangements @DC, Improved behavior, Improved mood/thought Preliminary Discharge Plan Preliminary DC Plan: Current Living Arrange. Special Precautions Fall Risk: Low Initial D/C Plan Pt. will return to [facility]. Identified Discharge Needs: Follow up with PCP Currently Utilized Resources Currently Utilized Resources/P: PCP Identified Problems/Hx/Goals Objectives/Short-Term Goals Short Term Goals: Dec. 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 Pt. daughter shared pt. had a difficult time tell them "no" and should would cry at night because her job expected so much out of her. Pt. eventually had to call to tell them she quit. Education: Pt. shared she graduated from high school. Community Follow-up Follow Up with PCP Community Provider/Family Inpu: Pt. daughter feels pt."age is kicking her" as she is unable to do the things she once did. "I would just like for her to get to enjoy activities." "I would like her to get involved in activities to not give up." Pt. daughter feels it is "depressing" pt. to not be able to do things. Treatment Plan Explained Patient/Investigative Shopper had this treatment plan explained to him/her as indicated by the signature below and has been given the opportunity to ask questions and make suggestions: Date: Patient/Investigative Shopper Signature: Patient/Investigative Shopper Decline: Yes PHILOMENA ROE Oct 07, 2019 08:21
[2019-10-07] MEDS: LACTOBACILLUS RHAMNOSUS GG 1 CAPSULE. PO SCH ×2 (08:36→20:12)
[2019-10-07] MEDS: CARBIDOPA/LEVODOPA 25/100MG TABLET PO SCH ×3 (08:36→20:13)
[2019-10-07] MEDS: DIVALPROEX SODIUM 250 MG TABLET.DR. PO SCH ×2 (08:36→20:17)
[2019-10-07] MEDS: BACLOFEN 10 MG TABLET PO SCH ×2 (08:36→20:13)
[2019-10-07] MEDS: busPIRone 10 MG TABLET. PO SCH ×2 (08:36→20:16)
[2019-10-07] MEDS: POTASSIUM CHLORIDE 20 MEQ TABLET.ER. PO SCH ×2 (08:36→20:14)
[2019-10-07] MEDS: FUROSEMIDE 40 MG TABLET PO SCH (08:37)
[2019-10-07] MEDS: METOPROLOL SUCC 24HR ER 25 MG TAB.ER.24H. PO SCH (08:37)
[2019-10-07] MEDS: hydrALAZINE 25 MG TABLET PO SCH ×2 (09:00→20:16)
[2019-10-07] MEDS: amLODIPine BESYLATE 10 MG TABLET PO SCH (09:00)
[2019-10-07 15:53] VITALS: BP 125/77
[2019-10-07] MEDS: ATORVASTATIN CALCIUM 20 MG TABLET PO SCH (20:12)
[2019-10-07] MEDS: LORazepam 0.5 MG TABLET PO SCH (20:13)
--- NOTE | 2019-10-07 20:27 | PN ---
DATE: 10/06/2019 This late entry 10/06/2019 covers elements not covered in my initial note. SUBJECTIVE: I met with the patient in the evening. Per Roney RN, the patient slept 8-1/4 hours previous night. She appears depressed, helpless. She had a Cardiology consult. Started on Cardizem and aspirin and statin. Heart rate is normal sinus rhythm. Valproic acid level subtherapeutic at 21, on Depakote 250 b.i.d. REVIEW OF SYSTEMS: Positive for some tiredness, being depressed. No CV, , pulmonary, eye system symptoms on review. MENTAL STATUS EXAMINATION: The patient is reasonably oriented. Speech has some latency, coherent, often response is monosyllabic. Abstraction fair, computation impaired, language function intact, attention span short. Mood and affect somewhat withdrawn, anxious. LABORATORY DATA: Reviewed. IMPRESSION: Schizoaffective disorder, bipolar type, mixed with psychotic features; anxiety disorder, unspecified. Rest unchanged. PLAN: Increase Depakote to 500 mg b.i.d. Check CBC, CMP, valproic acid level in 3 days. Maintain Ativan 0.5 mg at bedtime, BuSpar 10 mg b.i.d. Rest unchanged for now. ASHLY FORMAN MD DR: CHARLEY/sandoval JOB#: [id number] / [id number]
--- NOTE | 2019-10-07 21:25 | PDOC ---
Exam Note: Biju Note: Please also refer to the separate dictated note~for this date of service dictated separately.~Patient seen individually. Discussed the patient with Nursing staff reviewed the chart.~Reviewed interim history and current functioning. Reviewed vital signs,~Labs/ Radiology~and current medications noted below. Continue current treatment with the changes noted in the dictated addendum note Assessment: Vital Signs/I&O: Vital Signs Date Time Temp Pulse Resp B/P (MAP) Pulse Ox O2 Delivery O2 Flow Rate FiO2 10/07/19 20:30 97 Nasal Cannula 2.0 10/07/19 20:16 83 125/77 10/07/19 15:53 98.1 20 I & O 0 10/06/19 10/06/19 10/07/19 15:00 23:00 07:00 Intake Total 960 ml 480 ml 240 ml Balance 960 ml 480 ml 240 ml Current Medications: Meds: Current Medications Medications (Trade) Dose Ordered Sig/Mode Route PRN Reason Start Time Stop Time Status Last Admin Dose Admin Fluvoxamine Maleate (Luvox) 25 mg QHS PO 10/07/19 21:00 10/07/19 20:13 I have reviewed the current psychotropics carefully including drug interactions. Risk benefit ratio favors no change other than as noted in my dictated progress note. Diagnosis: Problems: (1) Dementia with behavioral disturbance (2) Mild cognitive impairment (3) Schizoaffective disorder, mixed type (4) Anxiety disorder, unspecified (5) Impulse disorder, unspecified ASHLY FORMAN MD Oct 07, 2019 21:25
[2019-10-08] MEDS: IPRATRPIUM/ALBUTEROL 0.5/2.5MG 3 ML NEBU. NEB SCH ×4 (06:04→22:26)
[2019-10-08 06:05] VITALS: BP 115/73
[2019-10-08] MEDS: ASPIRIN ENTERIC COATED 81 MG TABLET.DR. PO SCH (08:00)
[2019-10-08] MEDS: LACTOBACILLUS RHAMNOSUS GG 1 CAPSULE. PO SCH ×2 (08:16→20:24)
[2019-10-08] MEDS: BACLOFEN 10 MG TABLET PO SCH ×2 (08:16→20:24)
[2019-10-08] MEDS: POTASSIUM CHLORIDE 20 MEQ TABLET.ER. PO SCH ×2 (08:16→20:25)
[2019-10-08] MEDS: DIVALPROEX SODIUM 250 MG TABLET.DR. PO SCH ×2 (08:16→20:26)
[2019-10-08] MEDS: hydrALAZINE 25 MG TABLET PO SCH ×2 (08:17→20:22)
[2019-10-08] MEDS: busPIRone 10 MG TABLET. PO SCH ×2 (08:17→20:23)
[2019-10-08] MEDS: CARBIDOPA/LEVODOPA 25/100MG TABLET PO SCH ×3 (08:17→20:24)
[2019-10-08] MEDS: METOPROLOL SUCC 24HR ER 25 MG TAB.ER.24H. PO SCH (08:17)
[2019-10-08] MEDS: FUROSEMIDE 40 MG TABLET PO SCH (08:17)
[2019-10-08] MEDS: amLODIPine BESYLATE 10 MG TABLET PO SCH (08:18)
[2019-10-08 16:07] VITALS: BP 110/70
[2019-10-08] MEDS: LORazepam 0.5 MG TABLET PO SCH (20:23)
[2019-10-08] MEDS: ATORVASTATIN CALCIUM 20 MG TABLET PO SCH (20:23)
--- NOTE | 2019-10-08 22:06 | PDOC ---
Exam Note: Biju Note: Please also refer to the separate dictated note~for this date of service dictated separately.~Patient seen individually. Discussed the patient with Nursing staff reviewed the chart.~Reviewed interim history and current functioning. Reviewed vital signs,~Labs/ Radiology~and current medications noted below. Continue current treatment with the changes noted in the dictated addendum note Assessment: Vital Signs/I&O: Vital Signs Date Time Temp Pulse Resp B/P (MAP) Pulse Ox O2 Delivery O2 Flow Rate FiO2 10/08/19 20:22 76 144/86 10/08/19 16:07 97.9 18 97 10/08/19 10:23 Nasal Cannula 2.0 I & O 0 10/07/19 10/07/19 10/08/19 15:00 23:00 07:00 Intake Total 600 ml 120 ml Balance 600 ml 120 ml Current Medications: I have reviewed the current psychotropics carefully including drug interactions. Risk benefit ratio favors no change other than as noted in my dictated progress note. Diagnosis: Problems: (1) Dementia with behavioral disturbance (2) Mild cognitive impairment (3) Schizoaffective disorder, mixed type (4) Anxiety disorder, unspecified (5) Impulse disorder, unspecified ASHLY FORMAN MD Oct 08, 2019 22:06
[2019-10-09] MEDS: IPRATRPIUM/ALBUTEROL 0.5/2.5MG 3 ML NEBU. NEB SCH ×4 (05:57→21:27)
[2019-10-09 06:31] VITALS: BP 112/69
[2019-10-09] MEDS: ASPIRIN ENTERIC COATED 81 MG TABLET.DR. PO SCH (08:00)
[2019-10-09] MEDS: busPIRone 10 MG TABLET. PO SCH ×2 (08:24→20:24)
[2019-10-09] MEDS: DIVALPROEX SODIUM 250 MG TABLET.DR. PO SCH ×2 (08:25→20:27)
[2019-10-09] MEDS: METOPROLOL SUCC 24HR ER 25 MG TAB.ER.24H. PO SCH (08:25)
[2019-10-09] MEDS: LACTOBACILLUS RHAMNOSUS GG 1 CAPSULE. PO SCH ×2 (08:25→20:26)
[2019-10-09] MEDS: POTASSIUM CHLORIDE 20 MEQ TABLET.ER. PO SCH ×2 (08:25→20:26)
[2019-10-09] MEDS: hydrALAZINE 25 MG TABLET PO SCH ×2 (08:25→20:26)
[2019-10-09] MEDS: BACLOFEN 10 MG TABLET PO SCH ×2 (08:26→20:25)
[2019-10-09] MEDS: CARBIDOPA/LEVODOPA 25/100MG TABLET PO SCH ×3 (08:26→20:25)
[2019-10-09] MEDS: FUROSEMIDE 40 MG TABLET PO SCH (08:26)
[2019-10-09] MEDS: amLODIPine BESYLATE 10 MG TABLET PO SCH (08:26)
[2019-10-09 16:02] VITALS: BP 118/77
[2019-10-09] MEDS: ATORVASTATIN CALCIUM 20 MG TABLET PO SCH (20:25)
[2019-10-09] MEDS: LORazepam 0.5 MG TABLET PO SCH (20:26)
--- NOTE | 2019-10-09 21:24 | PN ---
DATE: 10/08/2019 PSYCHIATRIC PROGRESS NOTE This late entry 10/08/2019 covers elements not covered in my initial note. SUBJECTIVE: I met with the patient in the evening. Per Niyah RN, the patient slept 8 hours previous night, somewhat withdrawn, does have short term memory deficits. REVIEW OF SYSTEMS: Ambulation impaired with walker. No CV, , pulmonary, eye system symptoms on review. MENTAL STATUS EXAM: Oriented to herself and situation. Speech moderate latency, often responses monosyllabic. Abstraction fair, computation impaired, language function intact, attention span short. Mood and affect withdrawn. LABORATORY DATA: Reviewed. IMPRESSION: Unchanged from initial note. PLAN: No change from initial note. Luvox initiated 25 mg at bedtime. Adjust Depakote to reach therapeutic level. Rest unchanged. MAN Kimberly FORMAN MD DR: CHARLEY/sandoval JOB#: [id number] / [id number]
--- NOTE | 2019-10-09 21:25 | PN ---
DATE: 10/07/2019 PSYCHIATRIC PROGRESS NOTE. This late entry of 10/07/2019 covers the elements not covered in my initial note. SUBJECTIVE: I met with the patient in the evening of 10/07/2019 and staffed at a treatment team meeting with the entire team in the afternoon. The patient is sleeping average 6-1/2, slept 5-1/2 hours previous night. Appetite 60%. She appears somewhat helpless, somatic, stating she cannot walk or swallow pills, restless. May consider a swallow study, defer to Dr. Zapata. We will check with Dr. Otero, Neurology consult for questionable Parkinson's disease. REVIEW OF SYSTEMS: Ambulation impaired, in walker. No CV, , pulmonary, eye, ENT system symptoms on review. MENTAL STATUS EXAM: Oriented to herself and situation. Speech has some latency, coherent. Abstraction fair, computation impaired, language function intact. Mood and affect somewhat withdrawn. LABORATORY DATA: Reviewed. IMPRESSION: Unchanged from initial note. She is somewhat obsessive, anxious. We will start Luvox 25 mg p.o. at bedtime. She had been on Cymbalta in the past. Continue Ativan, BuSpar, Depakote for now. Valproic acid level will be adjusted to reach therapeutic level. ASHLY FORMAN MD DR: CHARLEY/sandoval JOB#: [id number] / [id number]
--- NOTE | 2019-10-09 21:44 | PDOC ---
Exam Note: Biju Note: Please also refer to the separate dictated note~for this date of service dictated separately.~Patient seen individually. Discussed the patient with Nursing staff reviewed the chart.~Reviewed interim history and current functioning. Reviewed vital signs,~Labs/ Radiology~and current medications noted below. Continue current treatment with the changes noted in the dictated addendum note Assessment: Vital Signs/I&O: Vital Signs Date Time Temp Pulse Resp B/P (MAP) Pulse Ox O2 Delivery O2 Flow Rate FiO2 10/09/19 21:33 96 Nasal Cannula 2.0 10/09/19 20:26 83 118/77 10/09/19 16:02 97.4 16 I & O 0 10/08/19 10/08/19 10/09/19 15:00 23:00 07:00 Intake Total 600 ml 600 ml Balance 600 ml 600 ml Current Medications: I have reviewed the current psychotropics carefully including drug interactions. Risk benefit ratio favors no change other than as noted in my dictated progress note. Diagnosis: Problems: (1) Dementia with behavioral disturbance (2) Mild cognitive impairment (3) Schizoaffective disorder, mixed type (4) Anxiety disorder, unspecified (5) Impulse disorder, unspecified ASHLY FORMAN MD Oct 09, 2019 21:44
[2019-10-10 05:50] VITALS: BP 123/78
[2019-10-10] MEDS: IPRATRPIUM/ALBUTEROL 0.5/2.5MG 3 ML NEBU. NEB SCH ×3 (06:08→16:00)
[2019-10-10 06:35] LABS: BASO % 1 % (0-3); EOS # 0.2 x10^3/uL (0.0-0.7); EOS % 4 % (0-3); HEMATOCRIT 42.6 % (36.0-47.0); HEMOGLOBIN 13.9 g/dL (12.0-15.5); LYMPH # 1.1 x10^3/uL (1.0-4.8); LYMPH % 22 % (24-48); MEAN CORPUSCULAR HEMOGLOBIN 31 pg (25-35); MEAN CORPUSCULAR HGB CONC 33 g/dL (31-37); MEAN CORPUSCULAR VOLUME 94 fL (79-100); MONO # 0.6 x10^3/uL (0.0-1.1); MONO % 12 % (0-9); NEUT # 2.9 x10^3uL (1.8-7.7); NEUT % 61 % (31-73); PLATELET COUNT 247 x10^3/uL (140-400); RED BLOOD COUNT 4.52 x10^6/uL (3.50-5.40); RED CELL DISTRIBUTION WIDTH 15.2 % (11.5-14.5); WHITE BLOOD COUNT 4.8 x10^3/uL (4.0-11.0)
[2019-10-10 06:51] LABS: ALBUMIN 2.8 g/dL (3.4-5.0); ALBUMIN/GLOBULIN RATIO 0.9 (1.0-1.7); ALK PHOS 65 U/L (46-116); ALT (SGPT) 12 U/L (14-59); ANION GAP 6 (6-14); AST (SGOT) 11 U/L (15-37); BLOOD UREA NITROGEN 9 mg/dL (7-20); BUN/CREATININE RATIO 13 (6-20); CALCIUM 8.9 mg/dL (8.5-10.1); CARBON DIOXIDE 32 mmol/L (21-32); CHLORIDE 105 mmol/L (98-107); CREATININE 0.7 mg/dL (0.6-1.0); GFR 81.1; GLUCOSE 90 mg/dL (70-99); POTASSIUM 4.4 mmol/L (3.5-5.1); SODIUM 143 mmol/L (136-145); TOTAL BILIRUBIN 0.3 mg/dL (0.2-1.0); TOTAL PROTEIN 5.9 g/dL (6.4-8.2)
[2019-10-10 06:56] LABS: VAL ACID 81 mcg/mL (50-100)
[2019-10-10] MEDS: DIVALPROEX SODIUM 250 MG TABLET.DR. PO SCH ×2 (08:35→20:28)
[2019-10-10] MEDS: busPIRone 10 MG TABLET. PO SCH ×2 (08:36→20:29)
[2019-10-10] MEDS: CARBIDOPA/LEVODOPA 25/100MG TABLET PO SCH ×3 (08:36→20:28)
[2019-10-10] MEDS: amLODIPine BESYLATE 10 MG TABLET PO SCH (08:36)
[2019-10-10] MEDS: hydrALAZINE 25 MG TABLET PO SCH ×2 (08:36→20:28)
[2019-10-10] MEDS: LACTOBACILLUS RHAMNOSUS GG 1 CAPSULE. PO SCH ×2 (08:36→20:28)
[2019-10-10] MEDS: BACLOFEN 10 MG TABLET PO SCH ×2 (08:36→20:28)
[2019-10-10] MEDS: POTASSIUM CHLORIDE 20 MEQ TABLET.ER. PO SCH ×2 (08:37→20:28)
[2019-10-10] MEDS: FUROSEMIDE 40 MG TABLET PO SCH (08:37)
[2019-10-10] MEDS: METOPROLOL SUCC 24HR ER 25 MG TAB.ER.24H. PO SCH (08:37)
[2019-10-10] MEDS: ASPIRIN ENTERIC COATED 81 MG TABLET.DR. PO SCH (08:38)
[2019-10-10 16:11] VITALS: BP 119/73
[2019-10-10] MEDS: ATORVASTATIN CALCIUM 20 MG TABLET PO SCH (20:28)
[2019-10-10] MEDS: LORazepam 0.5 MG TABLET PO SCH (20:29)
--- NOTE | 2019-10-10 21:27 | PDOC ---
Exam Note: Biju Note: Please also refer to the separate dictated note~for this date of service dictated separately.~Patient seen individually. Discussed the patient with Nursing staff reviewed the chart.~Reviewed interim history and current functioning. Reviewed vital signs,~Labs/ Radiology~and current medications noted below. Continue current treatment with the changes noted in the dictated addendum note Assessment: Vital Signs/I&O: Vital Signs Date Time Temp Pulse Resp B/P (MAP) Pulse Ox O2 Delivery O2 Flow Rate FiO2 10/10/19 20:28 89 119/73 10/10/19 16:11 97.0 18 93 10/10/19 10:55 Room Air 10/10/19 05:15 2.0 I & O 10/09/19 10/09/19 10/10/19 15:00 23:00 07:00 Intake Total 480 ml 480 ml 240 ml Balance 480 ml 480 ml 240 ml Labs: Laboratory Tests Test 10/10/19 06:17 White Blood Count 4.8 x10^3/uL (4.0-11.0) Red Blood Count 4.52 x10^6/uL (3.50-5.40) Hemoglobin 13.9 g/dL (12.0-15.5) Hematocrit 42.6 % (36.0-47.0) Mean Corpuscular Volume 94 fL (79-100) Mean Corpuscular Hemoglobin 31 pg (25-35) Mean Corpuscular Hemoglobin Concent 33 g/dL (31-37) Red Cell Distribution Width 15.2 % (11.5-14.5) H Platelet Count 247 x10^3/uL (140-400) Neutrophils (%) (Auto) 61 % (31-73) Lymphocytes (%) (Auto) 22 % (24-48) L Monocytes (%) (Auto) 12 % (0-9) H Eosinophils (%) (Auto) 4 % (0-3) H Basophils (%) (Auto) 1 % (0-3) Neutrophils # (Auto) 2.9 x10^3uL (1.8-7.7) Lymphocytes # (Auto) 1.1 x10^3/uL (1.0-4.8) Monocytes # (Auto) 0.6 x10^3/uL (0.0-1.1) Eosinophils # (Auto) 0.2 x10^3/uL (0.0-0.7) Basophils # (Auto) 0.0 x10^3/uL (0.0-0.2) Sodium Level 143 mmol/L (136-145) Potassium Level 4.4 mmol/L (3.5-5.1) Chloride Level 105 mmol/L (98-107) Carbon Dioxide Level 32 mmol/L (21-32) Anion Gap 6 (6-14) Blood Urea Nitrogen 9 mg/dL (7-20) Creatinine 0.7 mg/dL (0.6-1.0) Estimated GFR (Cockcroft-Gault) 81.1 BUN/Creatinine Ratio 13 (6-20) Glucose Level 90 mg/dL (70-99) Calcium Level 8.9 mg/dL (8.5-10.1) Total Bilirubin 0.3 mg/dL (0.2-1.0) Aspartate Amino Transferase (AST) 11 U/L (15-37) L Alanine Aminotransferase (ALT) 12 U/L (14-59) L Alkaline Phosphatase 65 U/L (46-116) Total Protein 5.9 g/dL (6.4-8.2) L Albumin 2.8 g/dL (3.4-5.0) L Albumin/Globulin Ratio 0.9 (1.0-1.7) L Valproic Acid Level 81 mcg/mL (50-100) Valproic Acid Last Dose Date 10/09/19 Valproic Acid Last Dose Time 2100 Current Medications: I have reviewed the current psychotropics carefully including drug interactions. Risk benefit ratio favors no change other than as noted in my dictated progress note. Diagnosis: Problems: (1) Dementia with behavioral disturbance (2) Mild cognitive impairment (3) Schizoaffective disorder, mixed type (4) Anxiety disorder, unspecified (5) Impulse disorder, unspecified ASHLY FORMAN MD Oct 10, 2019 21:27
--- NOTE | 2019-10-10 23:53 | PN ---
DATE: 10/09/2019 PSYCHIATRIC PROGRESS NOTE This late entry, 10/09, covers the elements not covered in my initial note. SUBJECTIVE: I met with the patient in the evening. Per PADDY Linder, the patient slept 7 hours previous night. She is compliant with her medications. At lunch, she was obsessing that she might have dementia. REVIEW OF SYSTEMS: Ambulation impaired and with walker. No CV, , pulmonary, eye systems symptoms on review. MENTAL STATUS EXAM: Reasonably oriented. Speech has some latency, often responses monosyllabic. Abstraction fair, computation impaired, language function intact. Mood and affect withdrawn. LABORATORY DATA: Reviewed. IMPRESSION: Unchanged from initial note. PLAN: No change from initial note. SAHLY FORMAN MD DR: CHARLEY/sandoval JOB#: [id number] / [id number]
[2019-10-11] MEDS: IPRATRPIUM/ALBUTEROL 0.5/2.5MG 3 ML NEBU. NEB SCH ×5 (00:47→21:21)
[2019-10-11 05:56] VITALS: BP 120/60
[2019-10-11] MEDS: busPIRone 10 MG TABLET. PO SCH ×2 (08:08→19:41)
[2019-10-11] MEDS: METOPROLOL SUCC 24HR ER 25 MG TAB.ER.24H. PO SCH (08:09)
[2019-10-11] MEDS: BACLOFEN 10 MG TABLET PO SCH ×2 (08:09→19:41)
[2019-10-11] MEDS: DIVALPROEX SODIUM 250 MG TABLET.DR. PO SCH ×2 (08:09→19:42)
[2019-10-11] MEDS: amLODIPine BESYLATE 10 MG TABLET PO SCH (08:09)
[2019-10-11] MEDS: FUROSEMIDE 40 MG TABLET PO SCH (08:10)
[2019-10-11] MEDS: CARBIDOPA/LEVODOPA 25/100MG TABLET PO SCH ×3 (08:10→19:41)
[2019-10-11] MEDS: LACTOBACILLUS RHAMNOSUS GG 1 CAPSULE. PO SCH ×2 (08:10→19:42)
[2019-10-11] MEDS: POTASSIUM CHLORIDE 20 MEQ TABLET.ER. PO SCH ×2 (08:10→19:41)
[2019-10-11] MEDS: hydrALAZINE 25 MG TABLET PO SCH ×2 (08:10→19:41)
[2019-10-11] MEDS: ASPIRIN ENTERIC COATED 81 MG TABLET.DR. PO SCH (08:11)
[2019-10-11 16:28] VITALS: BP 119/77
[2019-10-11] MEDS: LORazepam 0.5 MG TABLET PO SCH (19:41)
[2019-10-11] MEDS: ATORVASTATIN CALCIUM 20 MG TABLET PO SCH (19:42)
--- NOTE | 2019-10-11 20:05 | PN ---
DATE: 10/10/2019 PSYCHIATRIC PROGRESS NOTE This late entry 10/10/2019 covers elements not covered in my initial note. SUBJECTIVE: I met with the patient evening of 10/10/2019. Per PADDY Sim, the patient slept 5-3/4 hours previous night. Valproic acid level therapeutic at 81. The patient has been somewhat withdrawn, less paranoid, less anxious. REVIEW OF SYSTEMS: Ambulation impaired, in wheelchair. No CV, , pulmonary, eye, ENT system symptoms on review. MENTAL STATUS EXAMINATION: The patient is reasonably oriented. Speech has some latency, coherent, often responses monosyllabic. Abstraction fair, computation impaired, language function intact, attention span short. Mood and affect withdrawn. She does have some hand tremors and some facial tremors. Dr. Otero, Neurology has been consulted and I discussed the patient with Dr. Otero. LABORATORY DATA: Reviewed. IMPRESSION: Schizoaffective disorder, bipolar type, mixed with psychotic features; anxiety disorder, unspecified; impulse control disorder, unspecified. PLAN: Continue psychotropics from initial note. Defer Neurology recommendations to Dr. Otero. Continue Depakote 500 b.i.d., Luvox 25 mg at bedtime, Ativan 0.5 mg at bedtime, BuSpar 10 mg b.i.d. Adjust further as clinically indicated. MAN Kimberly FORMAN MD DR: CHARLEY/sandoval JOB#: [id number] / [id number]
--- NOTE | 2019-10-11 21:22 | PDOC ---
Exam Note: Biju Note: Please also refer to the separate dictated note~for this date of service dictated separately.~Patient seen individually. Discussed the patient with Nursing staff reviewed the chart.~Reviewed interim history and current functioning. Reviewed vital signs,~Labs/ Radiology~and current medications noted below. Continue current treatment with the changes noted in the dictated addendum note Assessment: Vital Signs/I&O: Vital Signs Date Time Temp Pulse Resp B/P (MAP) Pulse Ox O2 Delivery O2 Flow Rate FiO2 10/11/19 19:41 65 119/77 10/11/19 16:28 97.4 14 97 10/11/19 15:59 Room Air 10/10/19 05:15 2.0 I & O 10/10/19 10/10/19 10/11/19 15:00 23:00 07:00 Intake Total 960 ml 240 ml 120 ml Balance 960 ml 240 ml 120 ml Current Medications: I have reviewed the current psychotropics carefully including drug interactions. Risk benefit ratio favors no change other than as noted in my dictated progress note. Diagnosis: Problems: (1) Dementia with behavioral disturbance (2) Mild cognitive impairment (3) Schizoaffective disorder, mixed type (4) Anxiety disorder, unspecified (5) Impulse disorder, unspecified ASHLY FORMAN MD Oct 11, 2019 21:22
[2019-10-12] MEDS: IPRATRPIUM/ALBUTEROL 0.5/2.5MG 3 ML NEBU. NEB SCH ×4 (04:59→21:24)
[2019-10-12 05:47] VITALS: BP 103/65
[2019-10-12] MEDS: LACTOBACILLUS RHAMNOSUS GG 1 CAPSULE. PO SCH ×2 (08:42→19:42)
[2019-10-12] MEDS: DIVALPROEX SODIUM 250 MG TABLET.DR. PO SCH ×2 (08:43→19:42)
[2019-10-12] MEDS: CARBIDOPA/LEVODOPA 25/100MG TABLET PO SCH ×3 (08:43→19:43)
[2019-10-12] MEDS: BACLOFEN 10 MG TABLET PO SCH ×2 (08:43→19:42)
[2019-10-12] MEDS: FUROSEMIDE 40 MG TABLET PO SCH (08:43)
[2019-10-12] MEDS: METOPROLOL SUCC 24HR ER 25 MG TAB.ER.24H. PO SCH (08:43)
[2019-10-12] MEDS: amLODIPine BESYLATE 10 MG TABLET PO SCH (08:44)
[2019-10-12] MEDS: hydrALAZINE 25 MG TABLET PO SCH ×2 (08:44→19:42)
[2019-10-12] MEDS: busPIRone 10 MG TABLET. PO SCH ×2 (08:44→19:42)
[2019-10-12] MEDS: POTASSIUM CHLORIDE 20 MEQ TABLET.ER. PO SCH ×2 (08:44→19:42)
[2019-10-12] MEDS: ASPIRIN ENTERIC COATED 81 MG TABLET.DR. PO SCH (08:44)
[2019-10-12 16:15] VITALS: BP 117/73
[2019-10-12] MEDS: LORazepam 0.5 MG TABLET PO SCH (19:42)
[2019-10-12] MEDS: ATORVASTATIN CALCIUM 20 MG TABLET PO SCH (19:42)
--- NOTE | 2019-10-12 21:22 | PDOC ---
Exam Note: Biju Note: Please also refer to the separate dictated note~for this date of service dictated separately.~Patient seen individually. Discussed the patient with Nursing staff reviewed the chart.~Reviewed interim history and current functioning. Reviewed vital signs,~Labs/ Radiology~and current medications noted below. Continue current treatment with the changes noted in the dictated addendum note Assessment: Vital Signs/I&O: Vital Signs Date Time Temp Pulse Resp B/P (MAP) Pulse Ox O2 Delivery O2 Flow Rate FiO2 10/12/19 19:42 79 117/73 10/12/19 16:15 98.0 16 93 10/12/19 16:03 Room Air 10/10/19 05:15 2.0 I & O 10/11/19 10/11/19 10/12/19 15:00 23:00 07:00 Intake Total 600 ml 360 ml 120 ml Balance 600 ml 360 ml 120 ml Current Medications: I have reviewed the current psychotropics carefully including drug interactions. Risk benefit ratio favors no change other than as noted in my dictated progress note. Diagnosis: Problems: (1) Dementia with behavioral disturbance (2) Mild cognitive impairment (3) Schizoaffective disorder, mixed type (4) Anxiety disorder, unspecified (5) Impulse disorder, unspecified ASHLY FORMAN MD Oct 12, 2019 21:22
--- NOTE | 2019-10-12 22:01 | PN ---
DATE: 10/11/2019 PSYCHIATRIC PROGRESS NOTE This late entry, 10/11, covers elements not covered in my initial note. SUBJECTIVE: I met with the patient evening of 10/11. Per PADDY Sim, the patient slept 6-3/4 hours previous night. She has been flat, somewhat withdrawn, but compliant, less paranoid. REVIEW OF SYSTEMS: Ambulation impaired, in wheelchair. No CV, , pulmonary, eye, ENT system symptoms on review. MENTAL STATUS EXAM: Oriented to herself and situation. Speech is coherent, has some latency. Abstraction fair, computation impaired, language function intact, attention span short. Mood and affect somewhat withdrawn. LABORATORY DATA: Reviewed. IMPRESSION: Unchanged from initial note. PLAN: No change from initial note. MAN Kimberly FORMAN MD DR: CHARLEY/sandoval JOB#: [id number] / [id number]
[2019-10-13] MEDS: IPRATRPIUM/ALBUTEROL 0.5/2.5MG 3 ML NEBU. NEB SCH ×4 (05:09→22:02)
[2019-10-13 05:22] VITALS: BP 118/69
[2019-10-13] MEDS: ASPIRIN ENTERIC COATED 81 MG TABLET.DR. PO SCH (08:00)
[2019-10-13] MEDS: FUROSEMIDE 40 MG TABLET PO SCH (09:00)
[2019-10-13] MEDS: hydrALAZINE 25 MG TABLET PO SCH ×2 (09:00→20:04)
[2019-10-13] MEDS: amLODIPine BESYLATE 10 MG TABLET PO SCH (09:00)
[2019-10-13] MEDS: busPIRone 10 MG TABLET. PO SCH ×2 (09:12→20:04)
[2019-10-13] MEDS: LACTOBACILLUS RHAMNOSUS GG 1 CAPSULE. PO SCH ×2 (09:12→20:02)
[2019-10-13] MEDS: CARBIDOPA/LEVODOPA 25/100MG TABLET PO SCH ×3 (09:12→20:03)
[2019-10-13] MEDS: BACLOFEN 10 MG TABLET PO SCH ×2 (09:13→20:02)
[2019-10-13] MEDS: DIVALPROEX SODIUM 250 MG TABLET.DR. PO SCH ×2 (09:13→20:05)
[2019-10-13] MEDS: POTASSIUM CHLORIDE 20 MEQ TABLET.ER. PO SCH ×2 (09:13→20:03)
[2019-10-13] MEDS: METOPROLOL SUCC 24HR ER 25 MG TAB.ER.24H. PO SCH (09:14)
[2019-10-13 15:52] VITALS: BP 123/78
[2019-10-13] MEDS: ATORVASTATIN CALCIUM 20 MG TABLET PO SCH (20:04)
[2019-10-13] MEDS: LORazepam 0.5 MG TABLET PO SCH (20:04)
--- NOTE | 2019-10-13 21:27 | PDOC ---
Exam Note: Biju Note: Please also refer to the separate dictated note~for this date of service dictated separately.~Patient seen individually. Discussed the patient with Nursing staff reviewed the chart.~Reviewed interim history and current functioning. Reviewed vital signs,~Labs/ Radiology~and current medications noted below. Continue current treatment with the changes noted in the dictated addendum note Assessment: Vital Signs/I&O: Vital Signs Date Time Temp Pulse Resp B/P (MAP) Pulse Ox O2 Delivery O2 Flow Rate FiO2 10/13/19 20:04 71 123/78 10/13/19 16:29 96 Room Air 10/13/19 15:52 97.3 18 10/10/19 05:15 2.0 I & O 10/12/19 10/12/19 10/13/19 15:00 23:00 07:00 Intake Total 720 ml 480 ml 120 ml Balance 720 ml 480 ml 120 ml Current Medications: Meds: Current Medications Medications (Trade) Dose Ordered Sig/Mode Route PRN Reason Start Time Stop Time Status Last Admin Dose Admin Fluvoxamine Maleate (Luvox) 50 mg QHS PO 10/13/19 21:00 10/13/19 20:02 I have reviewed the current psychotropics carefully including drug interactions. Risk benefit ratio favors no change other than as noted in my dictated progress note. Diagnosis: Problems: (1) Dementia with behavioral disturbance (2) Mild cognitive impairment (3) Schizoaffective disorder, mixed type (4) Anxiety disorder, unspecified (5) Impulse disorder, unspecified ASLHY FORMAN MD Oct 13, 2019 21:27
[2019-10-14] MEDS: IPRATRPIUM/ALBUTEROL 0.5/2.5MG 3 ML NEBU. NEB SCH ×4 (05:18→23:04)
[2019-10-14 06:40] VITALS: BP 116/74
[2019-10-14] MEDS: ASPIRIN ENTERIC COATED 81 MG TABLET.DR. PO SCH (08:00)
[2019-10-14] MEDS: amLODIPine BESYLATE 10 MG TABLET PO SCH (08:22)
[2019-10-14] MEDS: METOPROLOL SUCC 24HR ER 25 MG TAB.ER.24H. PO SCH (08:23)
[2019-10-14] MEDS: CARBIDOPA/LEVODOPA 25/100MG TABLET PO SCH ×3 (08:23→20:57)
[2019-10-14] MEDS: hydrALAZINE 25 MG TABLET PO SCH ×2 (08:23→20:56)
[2019-10-14] MEDS: LACTOBACILLUS RHAMNOSUS GG 1 CAPSULE. PO SCH ×2 (08:23→20:56)
[2019-10-14] MEDS: DIVALPROEX SODIUM 250 MG TABLET.DR. PO SCH ×2 (08:23→20:57)
[2019-10-14] MEDS: BACLOFEN 10 MG TABLET PO SCH ×2 (08:23→20:56)
[2019-10-14] MEDS: busPIRone 10 MG TABLET. PO SCH ×2 (08:23→20:58)
[2019-10-14] MEDS: FUROSEMIDE 40 MG TABLET PO SCH (08:24)
[2019-10-14] MEDS: POTASSIUM CHLORIDE 20 MEQ TABLET.ER. PO SCH ×2 (08:24→20:57)
[2019-10-14 16:32] VITALS: BP 124/77
[2019-10-14] MEDS ORDERED: CHOLECALCIFEROL (VITAMIN D3) 50,000 UNIT CAPSULE PO SCH (17:15)
--- NOTE | 2019-10-14 19:11 | PN ---
DATE: 10/12/2019 PSYCHIATRIC PROGRESS NOTE This late entry 10/12/2019 covers elements not covered in my initial note. SUBJECTIVE: I met with the patient evening of 10/12/2019. Per PADDY Sim, the patient slept 8-1/4 hours previous night. She has been attending groups in the evening then goes to bed. She complains of having too many medications. REVIEW OF SYSTEMS: Ambulation impaired, in wheelchair. No CV, , pulmonary, eye system symptoms on review. MENTAL STATUS EXAM: Reasonably oriented. Speech moderate latency, often responses monosyllabic. Abstraction fair, computation impaired, language function intact, attention span short. Mood and affect remains withdrawn, but less psychotic. LABORATORY DATA: Reviewed. IMPRESSION: Unchanged from initial note. PLAN: No change from initial note. MAN Kimberly FORMAN MD DR: CHARLEY/sandoval JOB#: [id number] / [id number]
--- NOTE | 2019-10-14 19:13 | PN ---
DATE: 10/13/2019 This late entry 10/13/2019 covers elements not covered in my initial note. SUBJECTIVE: I met with the patient evening of 10/13/2019 and staffed a treatment team meeting with the entire team in the morning. The patient slept 7-3/4 hours previous night. She has been calm, cooperative, and compliant with medications. Appetite 75%, somewhat anxious, obsessive. REVIEW OF SYSTEMS: Ambulation impaired, in wheelchair. No CV, , pulmonary, eye system symptoms on review. MENTAL STATUS EXAM: Oriented reasonably. Speech is coherent, has some latency. Abstraction fair, computation impaired, language function intact. Mood and affect withdrawn. LABORATORY DATA: Reviewed. IMPRESSION: Unchanged from initial note. PLAN: No change from initial note. Increase Luvox from 25 mg at bedtime to 50 mg at bedtime. Maintain Ativan, BuSpar, and Depakote for now. Valproic acid level therapeutic at 81. ASHLY FORMAN MD DR: CHARLEY/sandoval JOB#: [id number] / [id number]
[2019-10-14] MEDS: ATORVASTATIN CALCIUM 20 MG TABLET PO SCH (20:56)
[2019-10-14] MEDS: LORazepam 0.5 MG TABLET PO SCH (20:57)
--- NOTE | 2019-10-14 21:26 | PDOC ---
Exam Note: Biju Note: Please also refer to the separate dictated note~for this date of service dictated separately.~Patient seen individually. Discussed the patient with Nursing staff reviewed the chart.~Reviewed interim history and current functioning. Reviewed vital signs,~Labs/ Radiology~and current medications noted below. Continue current treatment with the changes noted in the dictated addendum note Assessment: Vital Signs/I&O: Vital Signs Date Time Temp Pulse Resp B/P (MAP) Pulse Ox O2 Delivery O2 Flow Rate FiO2 10/14/19 20:56 76 124/77 10/14/19 16:32 97.7 18 93 10/14/19 16:00 Room Air 10/10/19 05:15 2.0 I & O 10/13/19 10/13/19 10/14/19 15:00 23:00 07:00 Intake Total 960 ml 480 ml 240 ml Balance 960 ml 480 ml 240 ml Current Medications: Meds: Current Medications Medications (Trade) Dose Ordered Sig/Mode Route PRN Reason Start Time Stop Time Status Last Admin Dose Admin Vitamin D (Vitamin D3) 50,000 unit WEEKLY PO 10/14/19 17:15 10/14/19 17:15 I have reviewed the current psychotropics carefully including drug interactions. Risk benefit ratio favors no change other than as noted in my dictated progress note. Diagnosis: Problems: (1) Dementia with behavioral disturbance (2) Mild cognitive impairment (3) Schizoaffective disorder, mixed type (4) Anxiety disorder, unspecified (5) Impulse disorder, unspecified ASHLY FORMAN MD Oct 14, 2019 21:26
[2019-10-15] MEDS: IPRATRPIUM/ALBUTEROL 0.5/2.5MG 3 ML NEBU. NEB SCH ×4 (06:16→20:08)
[2019-10-15 06:40] VITALS: BP 110/73
[2019-10-15] MEDS: CARBIDOPA/LEVODOPA 25/100MG TABLET PO SCH ×3 (07:57→19:27)
[2019-10-15] MEDS: DIVALPROEX SODIUM 250 MG TABLET.DR. PO SCH ×2 (07:57→19:28)
[2019-10-15] MEDS: METOPROLOL SUCC 24HR ER 25 MG TAB.ER.24H. PO SCH (07:58)
[2019-10-15] MEDS: busPIRone 10 MG TABLET. PO SCH ×2 (07:58→19:27)
[2019-10-15] MEDS: LACTOBACILLUS RHAMNOSUS GG 1 CAPSULE. PO SCH ×2 (07:58→19:27)
[2019-10-15] MEDS: hydrALAZINE 25 MG TABLET PO SCH ×2 (07:58→19:28)
[2019-10-15] MEDS: FUROSEMIDE 40 MG TABLET PO SCH (07:58)
[2019-10-15] MEDS: amLODIPine BESYLATE 10 MG TABLET PO SCH (07:59)
[2019-10-15] MEDS: ASPIRIN ENTERIC COATED 81 MG TABLET.DR. PO SCH (07:59)
[2019-10-15] MEDS: POTASSIUM CHLORIDE 20 MEQ TABLET.ER. PO SCH ×2 (07:59→19:27)
[2019-10-15] MEDS: BACLOFEN 10 MG TABLET PO SCH ×2 (07:59→19:27)
[2019-10-15 16:11] VITALS: BP 118/67
[2019-10-15] MEDS: LORazepam 0.5 MG TABLET PO SCH (19:27)
[2019-10-15] MEDS: ATORVASTATIN CALCIUM 20 MG TABLET PO SCH (19:27)
--- NOTE | 2019-10-15 21:26 | PDOC ---
Exam Note: Biju Note: Please also refer to the separate dictated note~for this date of service dictated separately.~Patient seen individually. Discussed the patient with Nursing staff reviewed the chart.~Reviewed interim history and current functioning. Reviewed vital signs,~Labs/ Radiology~and current medications noted below. Continue current treatment with the changes noted in the dictated addendum note Assessment: Vital Signs/I&O: Vital Signs Date Time Temp Pulse Resp B/P (MAP) Pulse Ox O2 Delivery O2 Flow Rate FiO2 10/15/19 20:09 95 Room Air 10/15/19 19:28 73 118/67 10/15/19 16:11 98.1 20 10/15/19 05:10 2.0 I & O 10/14/19 10/14/19 10/15/19 15:00 23:00 07:00 Intake Total 840 ml 480 ml 120 ml Balance 840 ml 480 ml 120 ml Current Medications: I have reviewed the current psychotropics carefully including drug interactions. Risk benefit ratio favors no change other than as noted in my dictated progress note. Diagnosis: Problems: (1) Dementia with behavioral disturbance (2) Mild cognitive impairment (3) Schizoaffective disorder, mixed type (4) Anxiety disorder, unspecified (5) Impulse disorder, unspecified ASHLY FORMAN MD Oct 15, 2019 21:26
[2019-10-16] MEDS: IPRATRPIUM/ALBUTEROL 0.5/2.5MG 3 ML NEBU. NEB SCH ×4 (04:58→20:22)
[2019-10-16 09:00] VITALS: BP 137/72
[2019-10-16] MEDS: LACTOBACILLUS RHAMNOSUS GG 1 CAPSULE. PO SCH ×2 (09:28→20:34)
[2019-10-16] MEDS: hydrALAZINE 25 MG TABLET PO SCH ×2 (09:28→20:34)
[2019-10-16] MEDS: ASPIRIN ENTERIC COATED 81 MG TABLET.DR. PO SCH (09:29)
[2019-10-16] MEDS: POTASSIUM CHLORIDE 20 MEQ TABLET.ER. PO SCH ×2 (09:29→20:35)
[2019-10-16] MEDS: busPIRone 10 MG TABLET. PO SCH ×2 (09:29→20:35)
[2019-10-16] MEDS: FUROSEMIDE 40 MG TABLET PO SCH (09:29)
[2019-10-16] MEDS: CARBIDOPA/LEVODOPA 25/100MG TABLET PO SCH ×3 (09:29→20:34)
[2019-10-16] MEDS: DIVALPROEX SODIUM 250 MG TABLET.DR. PO SCH ×2 (09:29→20:34)
[2019-10-16] MEDS: METOPROLOL SUCC 24HR ER 25 MG TAB.ER.24H. PO SCH (09:30)
[2019-10-16] MEDS: amLODIPine BESYLATE 10 MG TABLET PO SCH (09:30)
[2019-10-16] MEDS: BACLOFEN 10 MG TABLET PO SCH ×2 (09:30→20:35)
[2019-10-16 16:18] VITALS: BP 112/72
[2019-10-16] MEDS: ATORVASTATIN CALCIUM 20 MG TABLET PO SCH (20:35)
[2019-10-16] MEDS: LORazepam 0.5 MG TABLET PO SCH (20:35)
--- NOTE | 2019-10-16 21:30 | PDOC ---
Exam Note: Biju Note: Please also refer to the separate dictated note~for this date of service dictated separately.~Patient seen individually. Discussed the patient with Nursing staff reviewed the chart.~Reviewed interim history and current functioning. Reviewed vital signs,~Labs/ Radiology~and current medications noted below. Continue current treatment with the changes noted in the dictated addendum note Assessment: Vital Signs/I&O: Vital Signs Date Time Temp Pulse Resp B/P (MAP) Pulse Ox O2 Delivery O2 Flow Rate FiO2 10/16/19 20:34 77 112/72 10/16/19 20:22 95 Room Air 10/16/19 16:18 98.3 18 10/15/19 05:10 2.0 I & O 10/15/19 10/15/19 10/16/19 15:00 23:00 07:00 Intake Total 720 ml 600 ml Balance 720 ml 600 ml Current Medications: I have reviewed the current psychotropics carefully including drug interactions. Risk benefit ratio favors no change other than as noted in my dictated progress note. Diagnosis: Problems: (1) Dementia with behavioral disturbance (2) Mild cognitive impairment (3) Schizoaffective disorder, mixed type (4) Anxiety disorder, unspecified (5) Impulse disorder, unspecified ASHLY FORMAN MD Oct 16, 2019 21:30
--- NOTE | 2019-10-16 23:18 | PN ---
DATE: 10/14/2019 PSYCHIATRIC PROGRESS NOTE. This late entry of 10/14/2019 covers the elements not covered in my initial note. SUBJECTIVE: I met with the patient in the evening. Per PADDY Espinoza, the patient slept 6-3/4 hours previous night. She has been doing reasonably well, somewhat withdrawn, not agitated. REVIEW OF SYSTEMS: Ambulation impaired, in wheelchair. No CV, , pulmonary, eye system symptoms on review. MENTAL STATUS EXAMINATION: The patient is oriented to herself and situation. Speech has some latency, often responses monosyllabic. Abstraction fair, computation impaired, language function intact, attention span short. Mood and affect withdrawn, but improved. LABORATORY DATA: Reviewed. IMPRESSION: Unchanged from initial note. PLAN: No change from initial note. MAN Kimberly FORMAN MD DR: CHARLEY/sandoval JOB#: [id number] / [id number]
[2019-10-17] MEDS: IPRATRPIUM/ALBUTEROL 0.5/2.5MG 3 ML NEBU. NEB SCH ×3 (05:12→16:00)
[2019-10-17 06:05] VITALS: BP 126/79
[2019-10-17] MEDS: METOPROLOL SUCC 24HR ER 25 MG TAB.ER.24H. PO SCH (09:00)
[2019-10-17] MEDS: LACTOBACILLUS RHAMNOSUS GG 1 CAPSULE. PO SCH ×2 (09:00→19:44)
[2019-10-17] MEDS: busPIRone 10 MG TABLET. PO SCH ×2 (09:00→19:45)
[2019-10-17] MEDS: POTASSIUM CHLORIDE 20 MEQ TABLET.ER. PO SCH ×2 (09:00→19:44)
[2019-10-17] MEDS: FUROSEMIDE 40 MG TABLET PO SCH (09:00)
[2019-10-17] MEDS: CARBIDOPA/LEVODOPA 25/100MG TABLET PO SCH ×3 (09:01→19:45)
[2019-10-17] MEDS: DIVALPROEX SODIUM 250 MG TABLET.DR. PO SCH ×2 (09:01→19:45)
[2019-10-17] MEDS: ASPIRIN ENTERIC COATED 81 MG TABLET.DR. PO SCH (09:01)
[2019-10-17] MEDS: BACLOFEN 10 MG TABLET PO SCH ×2 (09:01→19:45)
[2019-10-17] MEDS: hydrALAZINE 25 MG TABLET PO SCH ×2 (09:01→19:45)
[2019-10-17] MEDS: amLODIPine BESYLATE 10 MG TABLET PO SCH (09:02)
[2019-10-17 15:53] VITALS: BP 110/72
[2019-10-17] MEDS: ATORVASTATIN CALCIUM 20 MG TABLET PO SCH (19:44)
[2019-10-17] MEDS: LORazepam 0.5 MG TABLET PO SCH (19:45)
--- NOTE | 2019-10-17 21:20 | PDOC ---
Exam Note: Biju Note: Please also refer to the separate dictated note~for this date of service dictated separately.~Patient seen individually. Discussed the patient with Nursing staff reviewed the chart.~Reviewed interim history and current functioning. Reviewed vital signs,~Labs/ Radiology~and current medications noted below. Continue current treatment with the changes noted in the dictated addendum note Assessment: Vital Signs/I&O: Vital Signs Date Time Temp Pulse Resp B/P (MAP) Pulse Ox O2 Delivery O2 Flow Rate FiO2 10/17/19 19:45 79 110/72 10/17/19 15:53 97.5 18 94 10/17/19 10:07 Room Air 10/15/19 05:10 2.0 I & O 10/16/19 10/16/19 10/17/19 15:00 23:00 07:00 Intake Total 840 ml 240 ml 240 ml Balance 840 ml 240 ml 240 ml Current Medications: I have reviewed the current psychotropics carefully including drug interactions. Risk benefit ratio favors no change other than as noted in my dictated progress note. Diagnosis: Problems: (1) Dementia with behavioral disturbance (2) Mild cognitive impairment (3) Schizoaffective disorder, mixed type (4) Anxiety disorder, unspecified (5) Impulse disorder, unspecified ASHLY FORMAN MD Oct 17, 2019 21:20
--- NOTE | 2019-10-17 21:36 | PN ---
DATE: 10/16/2019 PSYCHIATRIC PROGRESS NOTE This late entry 10/16/2019 covers the elements not covered in my initial note. SUBJECTIVE: I met with the patient in the evening of 10/16/2019. The patient slept 6-3/4 hours previous night per PADDY Phillips. Overall, the patient has been somewhat withdrawn, but appropriate. REVIEW OF SYSTEMS: Ambulation impaired, in wheelchair. No CV, , pulmonary, eye, ENT system symptoms on review. MENTAL STATUS EXAM: Reasonably oriented. Speech moderate latency, often responses monosyllabic. Abstraction fair, computation impaired, language function intact, attention span short. Mood and affect somewhat withdrawn. LABORATORY DATA: Reviewed. IMPRESSION: Unchanged from initial note. PLAN: No change from initial note. MAN Kimberly FORMAN MD DR: CHARLEY/sandoval JOB#: [id number] / [id number]
--- NOTE | 2019-10-17 21:36 | PN ---
DATE: 10/15/2019 PSYCHIATRIC PROGRESS NOTE This late entry 10/15/2019 covers elements not covered in my initial note. SUBJECTIVE: I met with the patient evening of 10/15/2019. Per PADDY Espinoza, the patient slept 7-1/2 hours previous night. She has been fairly cooperative, but withdrawn. She has not been aggressive, disruptive, less anxious, less paranoid. REVIEW OF SYSTEMS: Ambulation impaired, in wheelchair. No CV, , pulmonary, eye system symptoms on review. MENTAL STATUS EXAM: Oriented reasonably. Speech has some latency, often responses monosyllabic, coherent. Abstraction fair, computation impaired, language function intact, attention span short. Mood and affect is improved. LABORATORY DATA: Reviewed. IMPRESSION: Unchanged from initial note. PLAN: No change from initial note. MAN Kimberly FORMAN MD DR: CHARLEY/sandoval JOB#: [id number] / [id number]
[2019-10-18] MEDS: IPRATRPIUM/ALBUTEROL 0.5/2.5MG 3 ML NEBU. NEB SCH ×3 (04:42→22:04)
[2019-10-18 06:27] VITALS: BP 108/53
[2019-10-18] MEDS: ASPIRIN ENTERIC COATED 81 MG TABLET.DR. PO SCH (08:54)
[2019-10-18] MEDS: busPIRone 10 MG TABLET. PO SCH ×2 (08:54→20:01)
[2019-10-18] MEDS: LACTOBACILLUS RHAMNOSUS GG 1 CAPSULE. PO SCH ×2 (08:54→20:01)
[2019-10-18] MEDS: FUROSEMIDE 40 MG TABLET PO SCH (08:55)
[2019-10-18] MEDS: amLODIPine BESYLATE 10 MG TABLET PO SCH (08:55)
[2019-10-18] MEDS: POTASSIUM CHLORIDE 20 MEQ TABLET.ER. PO SCH ×2 (08:55→20:02)
[2019-10-18] MEDS: METOPROLOL SUCC 24HR ER 25 MG TAB.ER.24H. PO SCH (08:55)
[2019-10-18] MEDS: DIVALPROEX SODIUM 250 MG TABLET.DR. PO SCH ×2 (08:56→20:02)
[2019-10-18] MEDS: hydrALAZINE 25 MG TABLET PO SCH ×2 (08:56→20:01)
[2019-10-18] MEDS: CARBIDOPA/LEVODOPA 25/100MG TABLET PO SCH ×3 (08:56→20:02)
[2019-10-18] MEDS: BACLOFEN 10 MG TABLET PO SCH ×2 (08:56→20:01)
[2019-10-18] MEDS ORDERED: ALBU8HFA2 IH (09:19)
[2019-10-18] MEDS ORDERED: ASPI-612 PO (09:20)
[2019-10-18] MEDS ORDERED: ATOR20TA58 PO (09:21)
[2019-10-18] MEDS ORDERED: CHOL3000 PO (09:23)
[2019-10-18] MEDS ORDERED: MAGN24003 PO (09:25)
[2019-10-18] MEDS ORDERED: METH57CR17 TP (09:26)
[2019-10-18] MEDS ORDERED: POLY15DR27 EACHEYE (09:27)
[2019-10-18] MEDS ORDERED: FLUV50TA2 PO (09:29)
[2019-10-18 16:12] VITALS: BP 122/71
[2019-10-18] MEDS: LORazepam 0.5 MG TABLET PO SCH (20:01)
[2019-10-18] MEDS: ATORVASTATIN CALCIUM 20 MG TABLET PO SCH (20:02)
--- NOTE | 2019-10-18 21:30 | PDOC ---
Exam Note: Biju Note: Please also refer to the separate dictated note~for this date of service dictated separately.~Patient seen individually. Discussed the patient with Nursing staff reviewed the chart.~Reviewed interim history and current functioning. Reviewed vital signs,~Labs/ Radiology~and current medications noted below. Continue current treatment with the changes noted in the dictated addendum note Assessment: Vital Signs/I&O: Vital Signs Date Time Temp Pulse Resp B/P (MAP) Pulse Ox O2 Delivery O2 Flow Rate FiO2 10/18/19 20:01 73 122/71 10/18/19 16:12 98.2 18 93 10/18/19 10:55 Room Air 10/15/19 05:10 2.0 I & O 10/17/19 10/17/19 10/18/19 14:59 22:59 06:59 Intake Total 840 ml 240 ml 240 ml Balance 840 ml 240 ml 240 ml Current Medications: I have reviewed the current psychotropics carefully including drug interactions. Risk benefit ratio favors no change other than as noted in my dictated progress note. Diagnosis: Problems: (1) Dementia with behavioral disturbance (2) Mild cognitive impairment (3) Schizoaffective disorder, mixed type (4) Anxiety disorder, unspecified (5) Impulse disorder, unspecified ASHLY FORMAN MD Oct 18, 2019 21:30
--- NOTE | 2019-10-19 00:25 | PN ---
DATE: 10/17/2019 This late entry 10/17/2019 covers elements not covered in my initial note. SUBJECTIVE: I met with the patient evening of 10/17/2019. Per PADDY Wynne, the patient slept 7 hours previous night. She has been fairly cooperative on the unit, somewhat isolative. REVIEW OF SYSTEMS: Ambulation impaired, in wheelchair. No CV, , pulmonary, eye system symptoms on review. MENTAL STATUS EXAM: Reasonably oriented. Speech moderate latency, often responses monosyllabic. Abstraction fair, computation impaired, language function intact. Mood and affect withdrawn. No psychotic symptoms. No suicidal ideation. LABORATORY DATA: Reviewed. IMPRESSION: Unchanged from initial note. PLAN: No change from initial note. MAN Kimberly FORAMN MD DR: CHARLEY/sandoval JOB#: [id number] / [id number]
[2019-10-19] MEDS: IPRATRPIUM/ALBUTEROL 0.5/2.5MG 3 ML NEBU. NEB SCH ×2 (05:43→10:55)
[2019-10-19 06:00] VITALS: BP 110/65
[2019-10-19 07:13] LABS: BASO % 1 % (0-3); EOS # 0.1 x10^3/uL (0.0-0.7); EOS % 2 % (0-3); HEMATOCRIT 43.1 % (36.0-47.0); HEMOGLOBIN 14.4 g/dL (12.0-15.5); LYMPH % 22 % (24-48); MEAN CORPUSCULAR HEMOGLOBIN 32 pg (25-35); MEAN CORPUSCULAR HGB CONC 33 g/dL (31-37); MEAN CORPUSCULAR VOLUME 94 fL (79-100); MONO # 0.6 x10^3/uL (0.0-1.1); MONO % 13 % (0-9); NEUT % 63 % (31-73); PLATELET COUNT 243 x10^3/uL (140-400); RED BLOOD COUNT 4.57 x10^6/uL (3.50-5.40); WHITE BLOOD COUNT 4.8 x10^3/uL (4.0-11.0)
[2019-10-19 07:31] LABS: ALBUMIN 2.9 g/dL (3.4-5.0); CALCIUM 8.5 mg/dL (8.5-10.1); CREATININE 0.8 mg/dL (0.6-1.0); GFR 69.6; POTASSIUM 3.7 mmol/L (3.5-5.1); TOTAL BILIRUBIN 0.3 mg/dL (0.2-1.0); TOTAL PROTEIN 5.8 g/dL (6.4-8.2)
[2019-10-19] MEDS: busPIRone 10 MG TABLET. PO SCH (09:11)
[2019-10-19] MEDS: DIVALPROEX SODIUM 250 MG TABLET.DR. PO SCH (09:11)
[2019-10-19] MEDS: ASPIRIN ENTERIC COATED 81 MG TABLET.DR. PO SCH (09:11)
[2019-10-19] MEDS: amLODIPine BESYLATE 10 MG TABLET PO SCH (09:12)
[2019-10-19] MEDS: LACTOBACILLUS RHAMNOSUS GG 1 CAPSULE. PO SCH (09:12)
[2019-10-19] MEDS: CARBIDOPA/LEVODOPA 25/100MG TABLET PO SCH ×2 (09:12→13:04)
[2019-10-19] MEDS: BACLOFEN 10 MG TABLET PO SCH (09:12)
[2019-10-19] MEDS: hydrALAZINE 25 MG TABLET PO SCH (09:12)
[2019-10-19 09:13] VITALS: BP 110/65
[2019-10-19] MEDS: METOPROLOL SUCC 24HR ER 25 MG TAB.ER.24H. PO SCH (09:13)
[2019-10-19] MEDS: POTASSIUM CHLORIDE 20 MEQ TABLET.ER. PO SCH (09:13)
[2019-10-19] MEDS: FUROSEMIDE 40 MG TABLET PO SCH (09:13)
--- NOTE | 2019-10-19 17:00 | DS ---
DATE OF DISCHARGE: 10/19/2019 This note covers elements not covered in my initial note of 10/19/2019. REASON FOR ADMISSION: Please refer to the admission history for details. Briefly, the patient is a 79-year-old female referred to us from [facility] by Dr. Zapata, her primary care physician on account of worsening psychotic symptoms, mood swings, calling [phone] repeatedly. She was depressed, having decreased interest in activities, making repetitive statements, anxious. There is a change in her mental status, having panic attacks, calling the police and telling them that she "does not feel good." She had failed outpatient psychiatric interventions resulting in this referral. SIGNIFICANT FINDINGS AND CLINICAL COURSE: Following admission, the patient was seen daily individually by myself from a psychiatric standpoint, medical followup with Dr. Zapata. The patient remained withdrawn, depressed, paranoid. Adjustments were made in her psychotropics. She is quite obsessive and seemed to respond to a combination of Depakote 500 mg b.i.d. for schizoaffective disorder, Luvox 50 mg at bedtime. Valproic acid level therapeutic at 81. She is also on BuSpar 10 mg b.i.d., Ativan 0.5 mg at bedtime. Prior to discharge, 10/19/2019, ambulation impaired, in wheelchair. No CV, , pulmonary, eye system symptoms on review. MENTAL STATUS EXAMINATION: The patient is reasonably oriented. Speech is low in rate and rhythm, low in volume, coherent, abstraction fair, computation impaired, language function intact, attention span short. Mood and affect is withdrawn, but improved. LABORATORY DATA: Reviewed. FINAL DIAGNOSES: Schizoaffective disorder, bipolar type, depressed with psychotic features in partial remission; anxiety disorder, unspecified; impulse control disorder, unspecified. Rest unchanged from admission. DISCHARGE MEDICATIONS: Please refer to the [facility]. Outpatient psychiatric and medical followup at the [facility]. ASHLY FORMAN MD DR: CHARLEY/sandoval JOB#: [id number] / [id number]
--- NOTE | 2019-10-19 19:16 | CONS ---
DATE OF CONSULTATION: 10/07/2019 REFERRING PHYSICIAN: Dr. Corona. REASON FOR CONSULTATION: Rule out Parkinson disease. HISTORY OF PRESENT ILLNESS: This is a 79-year-old right-handed female who was admitted on 10/04/2019 on account of worsening of symptoms of depression, anxiety, and confusion. The patient was treated for severe schizoaffective disorders, bipolar type, with mixed psychotic features with Abilify for at least 1-1/2 years. According to the patient, she started having resting tremor of the hands and lips approximately 3 months ago. She has recently noticed decreased adult daily activities and slowing of her all motor capabilities to the point she sometimes becomes unsteady and has tendency to fall. She has been using a wheelchair for ambulation. She has recently noticed slowly progressive memory loss. She stated her symptoms are aggravated by anxiety. She denies chest pain, shortness of breath or palpitations, headaches, visual disturbances or vertigo. According to the patient, Cymbalta has been discontinued recently because of possible side effects of parkinsonism. PAST MEDICAL HISTORY: Significant for Parkinson's like symptoms including resting tremors and bradykinesia including the distal upper extremities and lips and sometimes affecting the legs, hypertension, gastroesophageal reflux disease, coronary artery disease and status post stent placements. FAMILY HISTORY: Noncontributory. SOCIAL HISTORY: Patient currently is a resident at [facility]. She denies smoking, alcohol drinking, or illicit drug use. CURRENT HOME MEDICATIONS: Albuterol inhalers and nebulizer, baclofen 10 mg twice daily, hydralazine 25 mg twice daily, metoprolol 25 mg daily, amlodipine 10 mg daily, Tylenol 650 p.r.n., Cymbalta 30 mg daily, Abilify 2.5 mg daily, lorazepam 0.5 mg at bedtime, buspirone 10 mg twice daily, carbidopa/levodopa 25 mg/100 three times daily, potassium 20 mEq daily, furosemide 40 mg daily, Flonase nasal spray. Carbidopa/levodopa 25/100 one tablet 3 times daily. ALLERGIES: DILTIAZEM AND RISPERIDONE. REVIEW OF SYSTEMS: A 10-point review of system was performed as mentioned above in history of present illness. PHYSICAL EXAMINATION: GENERAL: Well-developed, well-nourished female, not in acute distress. She weighs 92.8 kilos. VITAL SIGNS: Blood pressure 125/77, respiratory rate 20, pulse is 83, temperature 98.1, oxygen saturation is 98% on room air. HEENT: Normocephalic, atraumatic, otherwise unremarkable. NECK: Supple. Negative for carotid bruit, lymphadenopathy or thyromegaly. LUNGS: Clear to A and P. CARDIOVASCULAR: Regular rate and rhythm, normal S1, S2. There is no S3, S4 or murmur. ABDOMEN: Soft. Bowel sounds positive. EXTREMITIES: Negative for cyanosis, clubbing or pitting edema. NEUROLOGICAL EXAM: Mental Status: The patient is alert and oriented x 2. The speech is fluent. There is no language dysfunction. The patient recalls 2/3 immediately and 1 after 1 and 3 minutes. There is no language dysfunction. Judgment and abstract thinking are fair. The patient denies hallucination or delusion. CRANIAL NERVES: Pupils are equal and reactive to light and accommodation. The extraocular movements are intact. There is no nystagmus. There is no facial motor or sensory deficit. Hearing is intact bilaterally. The palate is elevated symmetrically. Sternocleidomastoid muscles are powerful bilaterally. The patient shrugs her shoulders symmetrically, protrudes her tongue in the midline without fasciculation or atrophy. MOTOR: No focal muscle bulk was seen. The tone is normal. The strength is 4/5 throughout. The patient obviously has resting tremor involving both distal upper extremities and intermittent tremor of the right lower extremity. Dyskinesic movements of the lips were also noted. SENSORY EXAMINATION: Revealed normal pinprick and light touch senses throughout. Deep tendon reflexes were asymmetric and hypoactive with absent Achilles responses. GAIT: The stance is somewhat steady. The patient was able to walk 1-step without assistance, but she has tendency to fall. COORDINATION: The patient has normal lhavow-[id number] and [id number]. DIAGNOSTIC DATA: Nonenhanced head CT scan revealed no evidence of acute intracranial process. LABORATORY DATA: From 10/05/2019, CBC revealed white blood cells of 5700, hemoglobin 13.9, hematocrit 42, platelet count 221,000. Chemistry revealed sodium of 141, potassium 3.9, chloride 106, CO2 of 29, BUN 7, creatinine 0.7, glucose 96, calcium 8.6. Urinalysis is negative for urinary tract infections. Urine drug screen is negative. IMPRESSION: 1. 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 2. Multiple medical problems include hypertension, coronary artery disease, gastroesophageal reflux disease, status post stent placement. 3. Multiple psychiatric problems include schizoaffective disorder, history of bipolar disorder and severe anxiety may have contributed to the current worsening of dyskinesia. RECOMMENDATIONS: 1. Continue with current medical and psychiatric care initiated by Dr. Zapata and Dr. Corona. 2. I will continue with carbidopa/levodopa as hopefully we will discontinue the medication slowly. M Mariposa GONZALEZ MD DR: MARIELA/sandoval JOB#: [id number] / [id number]
--- NOTE | 2019-10-19 21:31 | PDOC ---
Exam Note: Biju Note: Please also refer to the separate dictated note~for this date of service dictated separately.~Patient seen individually. Discussed the patient with Nursing staff reviewed the chart.~Reviewed interim history and current functioning. Reviewed vital signs,~Labs/ Radiology~and current medications noted below. Continue current treatment with the changes noted in the dictated addendum note Assessment: Vital Signs/I&O: Vital Signs Date Time Temp Pulse Resp B/P (MAP) Pulse Ox O2 Delivery O2 Flow Rate FiO2 10/19/19 10:55 92 Room Air 10/19/19 09:13 63 110/65 10/19/19 06:00 97.6 20 10/15/19 05:10 2.0 I & O 10/18/19 10/18/19 10/19/19 15:00 23:00 07:00 Intake Total 960 ml 600 ml Balance 960 ml 600 ml Labs: Laboratory Tests Test 10/19/19 06:45 White Blood Count 4.8 x10^3/uL (4.0-11.0) Red Blood Count 4.57 x10^6/uL (3.50-5.40) Hemoglobin 14.4 g/dL (12.0-15.5) Hematocrit 43.1 % (36.0-47.0) Mean Corpuscular Volume 94 fL (79-100) Mean Corpuscular Hemoglobin 32 pg (25-35) Mean Corpuscular Hemoglobin Concent 33 g/dL (31-37) Red Cell Distribution Width 15.0 % (11.5-14.5) H Platelet Count 243 x10^3/uL (140-400) Neutrophils (%) (Auto) 63 % (31-73) Lymphocytes (%) (Auto) 22 % (24-48) L Monocytes (%) (Auto) 13 % (0-9) H Eosinophils (%) (Auto) 2 % (0-3) Basophils (%) (Auto) 1 % (0-3) Neutrophils # (Auto) 3.0 x10^3uL (1.8-7.7) Lymphocytes # (Auto) 1.0 x10^3/uL (1.0-4.8) Monocytes # (Auto) 0.6 x10^3/uL (0.0-1.1) Eosinophils # (Auto) 0.1 x10^3/uL (0.0-0.7) Basophils # (Auto) 0.0 x10^3/uL (0.0-0.2) Sodium Level 143 mmol/L (136-145) Potassium Level 3.7 mmol/L (3.5-5.1) Chloride Level 104 mmol/L (98-107) Carbon Dioxide Level 31 mmol/L (21-32) Anion Gap 8 (6-14) Blood Urea Nitrogen 12 mg/dL (7-20) Creatinine 0.8 mg/dL (0.6-1.0) Estimated GFR (Cockcroft-Gault) 69.6 BUN/Creatinine Ratio 15 (6-20) Glucose Level 95 mg/dL (70-99) Calcium Level 8.5 mg/dL (8.5-10.1) Total Bilirubin 0.3 mg/dL (0.2-1.0) Aspartate Amino Transferase (AST) 9 U/L (15-37) L Alanine Aminotransferase (ALT) 9 U/L (14-59) L Alkaline Phosphatase 59 U/L (46-116) Total Protein 5.8 g/dL (6.4-8.2) L Albumin 2.9 g/dL (3.4-5.0) L Albumin/Globulin Ratio 1.0 (1.0-1.7) Current Medications: I have reviewed the current psychotropics carefully including drug interactions. Risk benefit ratio favors no change other than as noted in my dictated progress note. Diagnosis: Problems: (1) Mild cognitive impairment (2) Schizoaffective disorder, mixed type (3) Anxiety disorder, unspecified (4) Impulse disorder, unspecified ASHLY FORMAN MD Oct 19, 2019 21:31
--- NOTE | 2019-10-19 22:57 | PN ---
DATE: 10/18/2019 PSYCHIATRIC PROGRESS NOTE This late entry 10/18/2019 covers elements not covered in my initial note. SUBJECTIVE: I met with the patient evening of 10/18/2019. Per PADDY Kenyon, patient slept 8 hours previous night. She is compliant with her medications. We will be checking labs morning of 10/19/2019. REVIEW OF SYSTEMS: Ambulation impaired, in wheelchair. No CV, , pulmonary, eye system symptoms on review. MENTAL STATUS EXAM: Reasonably oriented. Speech moderate latency, often responses monosyllabic. Abstraction fair, computation impaired, language function intact, attention span short. Mood and affect withdrawn. LABORATORY DATA: Reviewed. IMPRESSION: Unchanged from initial note. PLAN: No change from initial note. Transition to senior living 10/19/2019. MAN Kimberly FORMAN MD DR: CHARLEY/sandoval JOB#: [id number] / [id number]
== END 2019-10-19 13:15 | DRG 885 ==
LOC: ER 18:12 → GEROPSY 22:40
PROVIDERS: ADMIT Psychiatry & Neurology Psychiatry; ATTEND Psychiatry & Neurology Psychiatry
DX: F25.0 Schizoaffective disorder, bipolar type (principal); F03.91 Unspecified dementia, unspecified severity, with behavioral disturbance; G21.19 Other drug induced secondary parkinsonism; F63.9 Impulse disorder, unspecified; F41.0 Panic disorder [episodic paroxysmal anxiety]; K44.9 Diaphragmatic hernia without obstruction or gangrene; R29.6 Repeated falls; J44.9 Chronic obstructive pulmonary disease, unspecified; I49.3 Ventricular premature depolarization; I48.91 Unspecified atrial fibrillation; K80.20 Calculus of gallbladder without cholecystitis without obstruction; G25.0 Essential tremor; M19.90 Unspecified osteoarthritis, unspecified site; G24.01 Drug induced subacute dyskinesia; E78.5 Hyperlipidemia, unspecified; I25.10 Atherosclerotic heart disease of native coronary artery without angina pectoris; I10 Essential (primary) hypertension; K21.9 Gastro-esophageal reflux disease without esophagitis; Z99.81 Dependence on supplemental oxygen; Z95.5 Presence of coronary angioplasty implant and graft; Z90.710 Acquired absence of both cervix and uterus; Z87.01 Personal history of pneumonia (recurrent); Z82.49 Family history of ischemic heart disease and other diseases of the circulatory system; Z79.899 Other long term (current) drug therapy; Z88.8 Allergy status to other drugs, medicaments and biological substances
CPT/HCPCS: 36415; 70450; 71045; 80048; 80053; 80061; 80076; 80164; 80307; 81001; 82306; 82550; 82607; 83036; 83540; 83550; 83690; 83735; 83880; 84436; 84443; 84480; 84484; 85025; 85610; 85651; 85730; 86592; 87804; 93005; 94640; 99285; G0480; 97110; 97116; 97530; 97535